=== PATIENT | female | born 1960 | race Two or more races ===

== ENCOUNTER 2020-07-23 22:09 | Inpatient (IN) | payer OTHER ==
[~2020-07-23] VITALS: Ht 157.5 cm; Wt 82.9 kg
[~2020-07-23 22:09] MED LIST: ACET500T15 PO; AMBERIN PO
[2020-07-23] MEDS ORDERED: MORPHINE 4 MG/ML 1ML VIAL/SYRINGE (J2270) IV ONE (22:30)
[2020-07-23] MEDS ORDERED: NS 1,000 ML IV ONE (22:30)
[2020-07-23] MEDS ORDERED: ONDANSETRON 4MG/2ML VIAL IV ONE (22:30)
[2020-07-23] MEDS ORDERED: ACETAMINOPHEN TAB 650MG DOSE (2X325MG) PO ONE (22:45)
--- NOTE | 2020-07-23 22:45 | REPVR ---
PROCEDURE INFORMATION: Exam: XR Chest, 1 View Exam date and time: 07/23/2020 10:14 PM Age: 59 years old Clinical indication: Other: SOB, covid positive; Additional info: SOB, covid+ TECHNIQUE: Imaging protocol: XR of the chest Views: 1 view. COMPARISON: CR PORTABLE CHEST X-RAY 05/28/2017 4:14 PM FINDINGS: Lungs: There is decreased inflation of the lungs. Perihilar haziness which may be related to low inflation, however, there is greater localized haziness or infiltrate in the right upper lobe suggesting pneumonia. Minimal left base atelectasis or scar. Pleural space: Unremarkable. No pleural effusion. No pneumothorax. Heart/Mediastinum: Unremarkable. No cardiomegaly. Bones/joints: Unremarkable. Soft tissues: There are moderately generous overlying soft tissues. IMPRESSION: Poor inspiratory chest with perihilar haziness which may be reflection of vascular crowding and low inflation, however, there is localized density in the right upper lobe consistent with infiltrate and pneumonia. Additional perihilar infiltrates are not excluded. Electronically signed by: Dino Paz On 07/23/2020 22:45:11 PM
[2020-07-23 23:09] LABS: BASO % 0.1 % (0.0-1.0); HEMATOCRIT 39.6 % (36.0-47.0); HEMOGLOBIN 12.8 g/dl (12.0-15.5); LYMPH # 0.5 10^3/uL (1.5-5.0); LYMPH % 7.8 % (24.0-44.0); MEAN CORPUSCULAR HEMOGLOBIN 29.2 pg (27.0-33.0); MEAN CORPUSCULAR HGB CONC 32.3 g/dl (32.0-36.5); MEAN CORPUSCULAR VOLUME 90.4 fl (80.0-96.0); MONO # 0.3 10^3/uL (0.0-0.8); MONO % 3.6 % (0.0-5.0); NEUTROPHILS # 6.1 10^3/uL (1.5-8.5); NEUTROPHILS % 87.9 % (36.0-66.0); PLATELET COUNT, AUTOMATED 310 10^3/uL (150-450); RED BLOOD COUNT 4.38 10^6/uL (4.00-5.40); WHITE BLOOD COUNT 6.9 10^3/uL (4.0-10.0)
[2020-07-23 23:23] LABS: D-DIMER QUANT 1019.36 ng/ml (<500)
[2020-07-23 23:42] LABS: ALBUMIN 2.8 GM/DL (3.2-5.2); ALT/SGPT 57 U/L (12-78); BILIRUBIN,TOTAL 0.3 MG/DL (0.2-1.0); BLOOD UREA NITROGEN 18 MG/DL (7-18); CALCIUM LEVEL 8.2 MG/DL (8.5-10.1); CARBON DIOXIDE LEVEL 25 MEQ/L (21-32); CHLORIDE LEVEL 105 MEQ/L (98-107); CK-MB VALUE MASS < 1.0 NG/ML (<3.6); CPK CREATINE PHOSPHOKINASE 60 U/L (26-192); CREATININE FOR GFR 0.73 MG/DL (0.55-1.30); FERRITIN 1146 NG/ML (8-252); GLOMERULAR FILTRATION RATE > 60.0 (>51); GLUCOSE, FASTING 122 MG/DL (70-100); LDH LACTATE DEHYDROGENASE 356 U/L (84-246); LIPASE 168 U/L (73-393); MAGNESIUM LEVEL 2.2 MG/DL (1.8-2.4); MB/CK RELATIVE INDEX 1.67 (< OR =4); POTASSIUM SERUM 3.4 MEQ/L (3.5-5.1); SODIUM LEVEL 139 MEQ/L (136-145); TOTAL PROTEIN 6.9 GM/DL (6.4-8.2); TROPONIN I < 0.02 NG/ML (< 0.10)
[2020-07-23] MEDS ORDERED: dexameTHASONE 20MG/5ML VIAL (J1100 PER 1MG) IV ONE (23:45)
[2020-07-23] MEDS ORDERED: ISOVUE-370 76% 100ML VIAL As Ordered ONE (23:47)
--- NOTE | 2020-07-24 00:24 | REPVR ---
PROCEDURE INFORMATION: Exam: CT Angiography Chest With Contrast Exam date and time: 07/23/2020 11:29 PM Age: 59 years old Clinical indication: Shortness of breath; Additional info: Hypoxia, SOB, eval for pe TECHNIQUE: Imaging protocol: Computed tomographic angiography of the chest with intravenous contrast. 3D rendering (Not supervised by radiologist): MIP and/or 3D reconstructed images were created by the technologist. Radiation optimization: All CT scans at this facility use at least one of these dose optimization techniques: automated exposure control; mA and/or kV adjustment per patient size (includes targeted exams where dose is matched to clinical indication); or iterative reconstruction. Contrast material: ISO; Contrast volume: 100 ml; Contrast route: INTRAVENOUS (IV); COMPARISON: CT ANGIO CHEST 05/28/2017 6:10 PM FINDINGS: Pulmonary arteries: The main pulmonary artery measures 19 mm. No pulmonary embolism is identified. Aorta: The ascending thoracic aorta measures 28 mm. Lungs: Bilateral ground-glass pulmonary infiltrates with associated areas of atelectasis and early consolidation which are greatest in the upper lobes consistent with pneumonia. Pleural space: Unremarkable. No pneumothorax. No pleural effusion. Heart: The left atrium measures 4.4 cm in its AP dimension. Mediastinal space: Minimal hiatal hernia. Lymph nodes: Unremarkable. No enlarged lymph nodes. Liver: The liver attenuation is 27 Hounsfield units and the spleen is 64 Hounsfield units. Gallbladder and bile ducts: Status post cholecystectomy. Bones/joints: Unremarkable. No acute fracture. Soft tissues: Unremarkable. IMPRESSION: 1. New bilateral ground-glass pulmonary infiltrates with areas of atelectasis and early consolidation consistent with pneumonia which is greatest in the upper lobes. 2. Probable fatty infiltration of the liver. 3. Otherwise negative CTA chest. No interval pulmonary embolism is seen since 05/28/2017. Electronically signed by: Dino Paz On 07/24/2020 00:24:22 AM
[2020-07-24 00:27] LABS: INR 1.12; PROTHROMBIN TIME 14.6 SECONDS (12.5-14.3)
[2020-07-24 00:28] LABS: PARTIAL THROMBOPLASTIN TIME 32.7 SECONDS (24.2-38.5)
--- NOTE | 2020-07-24 00:29 | REPVR ---
PROCEDURE INFORMATION: Exam: CT Abdomen And Pelvis With Contrast Exam date and time: 07/23/2020 10:36 PM Age: 59 years old Clinical indication: Nausea; Abdominal pain; Generalized; Additional info: Covid+, abdominal pain, n/v/d TECHNIQUE: Imaging protocol: Computed tomography of the abdomen and pelvis with intravenous contrast. Radiation optimization: All CT scans at this facility use at least one of these dose optimization techniques: automated exposure control; mA and/or kV adjustment per patient size (includes targeted exams where dose is matched to clinical indication); or iterative reconstruction. Contrast material: ISO; Contrast volume: 100 ml; Contrast route: INTRAVENOUS (IV); COMPARISON: No relevant prior studies available. FINDINGS: Lungs: Mild bibasilar ground-glass infiltrates with associated atelectasis. Mediastinal space: Minimal hiatal hernia. Liver: The liver attenuation is 51 Hounsfield units and the spleen is 145 Hounsfield units. The liver at mid clavicular line measures 12.9 cm cm. Gallbladder and bile ducts: Status post cholecystectomy. Mild biliary dilation which is attributed to prior cholecystectomy and is likely physiologic. The CBD measures 10 mm with tapering to the ampulla. Pancreas: Mild distention of the main pancreatic duct measuring up to 6 mm with tapering to the ampulla. Spleen: Normal. No splenomegaly. Adrenal glands: Normal. No mass. Kidneys and ureters: Normal. No hydronephrosis. Stomach and bowel: Fluid throughout much of the colon with air-fluid levels to the rectum consistent with diarrhea. Appendix: There are no changes of appendicitis. A normal appendix is not seen. Intraperitoneal space: Unremarkable. No free air. No significant fluid collection. Vasculature: Unremarkable. No abdominal aortic aneurysm. Lymph nodes: Unremarkable. No enlarged lymph nodes. Urinary bladder: Unremarkable as visualized. Reproductive: Unremarkable as visualized. Bones/joints: Bilateral spondylolysis of L5 with grade 2 anterolisthesis. Soft tissues: Unremarkable. IMPRESSION: 1. Fluid throughout the colon to the rectum consistent with diarrhea. 2. Mild bibasilar ground-glass infiltrates with associated atelectasis consistent with pneumonia. 3. Fatty infiltration of the liver. 4. Mild distention of the main pancreatic duct which tapers to the ampulla. 5. Otherwise negative CT abdomen/pelvis. No bowel obstruction. Electronically signed by: Dino Paz On 07/24/2020 00:29:44 AM
[2020-07-24 00:31] LABS: NT-PRO BNP 306 PG/ML (<125)
[2020-07-24 00:42] LABS: ERYTHROCYTE SEDIMENTATION RATE 64 mm/hr (0-30)
[2020-07-24] MEDS ORDERED: POTASSIUM CHLORIDE 10 MEQ SR TABLET PO ONE (02:30)
--- NOTE | 2020-07-24 03:06 | HPEPDOC ---
[facility] Medical History & Physical Date of Admission Jul 24, 2020 Date of Service: Jul 24, 2020 Attending Physician: JENNIFER PADILLA MD History and Physical CHIEF COMPLAINT: Nausea, vomiting, abdominal pain, and shortness of breath HISTORY OF PRESENT ILLNESS: is a 59yo female with no notable PMHx other than a prolapsed mitral valve who presented to the [facility] ED on the evening of 07/23/2020 at the urging of her because she had been acting "delirious," and had not eaten much in a few days due to vomiting. Patient reports her recent history dates back to Sunday, 07/12 when she began to feel full body aches. As these aches progressed, her son urged her to present for COVID-19 testing on 07/17 - - for which she tested positive. She reports being prescribed 4 days of an antibiotic she cannot recall the name of (only took for 2 days due to onset of emesis), as well as an inhaler, by urgent care. She remained at home under quarantine and a few days later, began to experience significant nausea and vomiting, with nonbloody emesis 34 times per day for 4 days, leading in to 07/22. On the day of presentation, 07/23, patient reported coffee ground-appearing emesis. As it relates to the aforementioned. Altered mental status, she describes is a difficulty concentrating. She also had accompanying fevers for the last 5 days (100-101 degrees temporally) and sharp continuous pain under her right rib cage that would improve slightly after vomiting. Upon presentation to the ED, her temperature was measured at 101.1, and she was saturating at only 84% on room air. She was placed on nasal cannula oxygen supplementation and given a one-time dose of 10 mg IV, dexamethasone, 4 mg IV morphine, and a 1 L normal saline bolus. She did not have leukocytosis, but did have significant elevations in ferritin, LDH, d-dimer, BNP, CRP, and ESR. She also had some mild hypokalemia. Lactic acid was measured 1.5. Per discussion with ED nursing, patient didn't respond much the morphine, but did feel significantly better after getting the dexamethasone. CT chest with contrast showed new bilateral groundglass infiltrates with some early atelectasis and consolidation consistent with pneumonia, greatest in the upper lobes. CT abdomen and pelvis with contrast showed fluid in the rectum co nsistent with diarrhea as well as fatty liver and mild distention of the main pancreatic duct. At the time of admitting evaluation, she reported the pain under her right rib cage had resolved, she was only mildly short of breath. She was denying any cough or productive sputum, and had only a little increased work of breathing. In addition, she no longer felt nauseous and had not had an episode of emesis since presentation. PAST MEDICAL HISTORY: Prolapsed mitral valve PAST SURGICAL HISTORY: Cholecystectomy Tubal ligation SOCIAL HISTORY: Lives with her in [place], [place]. Has 2 children, boy and a girl, who are both grown. 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 She averages roughly 2-3 beers or rum and Coke drinks per week She denies any current or former use of tobacco products or illicit drugs. FAMILY HISTORY: Mother: , unspecified heart condition requiring implantation of pacemaker/defibrillator, unprovoked pulmonary embolism, CVA in 2017 Father: Stage IV kidney cancer status post nephrectomy with metastases to vertebrae ALLERGIES: Please see below. REVIEW OF SYSTEMS: CONSTITUTIONAL: Reports fevers, chills as stated in HPI. Denies recent unintentional change in weight EYES: Denies double vision or blurry vision, eye pain ENT: Denies runny nose, ear pain, dysphagia, or odynophagia CARDIOVASCULAR: Denies chest pain, pressure, or palpitations RESPIRATORY: Reports mild increase in work of breathing as well, shortness of breath but denies cough or productive sputum GASTROINTESTINAL: Reports right upper quadrant abdominal pain that has improved since presentation. Denies any nausea or vomiting at this time, but recent extensive history as detailed in HPI. Also reports coffee ground emesis on day presentation, as well as diarrhea. Denies any blood in the stool. GENITOURINARY: Denies hematuria or dysuria NEUROLOGY: Denies any changes to sight/smell/hearing/taste, seizures, faint, headaches, paresthesias, numbness of extremities HEMATOLOGIC: Denies any easy bleeding or bruising LYMPHATIC: Denies any new lumps or bumps anywhere HOME MEDICATIONS: Please see below. PHYSICAL EXAMINATION: VITAL SIGNS: Temperature max 101.1, pulse 81, respiratory rate, 20, blood pressure 138/67, pulse oximetry, 96 % on 3L NC. GENERAL: Pleasant female lying in bed. Wearing nasal cannula supplemental action. Alert and oriented 3. HEENT: Noninjected, anicteric sclera. PERRLA. Dry mucous membranes. No p haryngeal erythema or exudate. RESPIRATORY: Moderately diminished tidal volume and breath sounds bilaterally with symmetric chest expansion. No other adventitious breath sounds appreciated. Breathing with 3 L nasal cannula. CARDIOVASCULAR: Regular rate, regular rhythm. Normal S1, S2. ABDOMEN: Soft obese. Nondistended. Mild tenderness of right upper quadrant. No rigidity. Hypoactive bowel sounds present. Very tanned skin over abdomen. EXTREMITIES: Bilateral lower extremities free of edema with no signs of clubbing or cyanosis. 2+ radial and dorsalis pedis pulses bilaterally. NEUROLOGICAL: Awake, alert and oriented 3, no focal neurologic deficits appreciable. Non-dysarthric speech. PSYCHIATRIC: Mood and affect appear appropriate. LABORATORY DATA: Please see below. IMAGING: Chest Xray, 07/23/20 IMPRESSION: Poor inspiratory chest with perihilar haziness which may be reflection of vascular crowding and low inflation, however, there is localized density in the right upper lobe consistent with infiltrate and pneumonia. Additional perihilar infiltrates are not excluded. CT abdomen/pelvis, 07/23/20 IMPRESSION: 1. Fluid throughout the colon to the rectum consistent with diarrhea. 2. Mild bibasilar ground-glass infiltrates with associated atelectasis consistent with pneumonia. 3. Fatty infiltration of the liver. 4. Mild distention of the main pancreatic duct which tapers to the ampulla. 5. Otherwise negative CT abdomen/pelvis. No bowel obstruction. CTA, 07/23/20 IMPRESSION: 1. New bilateral ground-glass pulmonary infiltrates with areas of atelectasis and early consolidation consistent with pneumonia which is greatest in the upper lobes. 2. Probable fatty infiltration of the liver. 3. Otherwise negative CTA chest. No interval pulmonary embolism is seen since 05/28/2017. MICROBIOLOGY: Please see below. ASSESSMENT & PLAN: This is a 59yo female w/ no notable hx other than mitral valve prolapse who presented to the ED on the evening as a known positive COVID-19 with 5 days of nausea, vomiting, fevers and right upper quadrant abdominal pain. Upon present ation, she had a temperature of 101.1 and was satting at 84% on room air. She responded well to IV dexamethasone in the ED and had multiple inflammatory markers elevated. She was subsequently admitted primarily for treatment of Covid 19 pneumonia. #Acute hypoxic respiratory failure COVID-19 pneumonia/pneumonitis -Presented febrile with 84% saturation on room air; she responded well to O2 supplementation in the ED; of's note, patient does not have a history of any obstructive, restrictive, or reactive airway disease -D-dimer (1019), LDH (356), ferritin (1146), CRP (20), ESR (64) significantly elevated -Due to presenting marked hypoxia on RA, as well as response in ED to 1x dose, qd IV dexamethasone ordered -Due to multiple elevated inflammatory markers, specifically CRP, aligning in current research for worse prognosis, ministration of remdesivir was initiated -sc lovenox ordered -Oxygen titration orders placed with goal of greater than 92% -incentive spirometry, VBG, Tessalon Perles all ordered -Covid 19 order set completed for follow-up 12 hour labs, with daily labs #Dehydration secondary to poor oral intake from multiple days of vomiting and diarrhea -Patient had dry mucous membranes on exam with recent poor oral intake. Therefore, despite mildly elevated BNP that could be secondary to hypoxia and multiple other inflammatory elements, 1 L of normal saline ordered -Initial lactic 1.5 #Abdominal pain -Mild dilation of the pancreatic duct and fatty liver seen on imaging -Patient has had roughly 5 days of emesis, last day which she endorsed coffee- ground emesis -Responded well to IV steroids, which will be continued in the setting of her hypoxic respiratory failure/Covid pneumonia -IV Zofran, po protonix #Fatty liver -Identified on CT abdomen and pelvis -Patient is not have history of diabetes or impaired fasting glucose, -Triglycerides level ordered #Reported coffee-ground emesis -Patient reported that today, the fifth day of vomiting, she began to have coffee ground -Hemoglobin 12.8 on presentation -po protonix ordered #Mild hypokalemia -sK 3.4 upon presentation; supplemented orally #DVT prophylaxis: sc lovenox Disposition: Pending continued improvement in oxygenation inflammatory markers in the setting of positive COVID Vital Signs Vital Signs Date Time Temp Pulse Resp B/P (MAP) Pulse Ox O2 Delivery O2 Flow Rate FiO2 07/24/20 00:30 138/67 (90) 07/24/20 00:24 81 96 07/24/20 00:11 99.4 20 Nasal Cannula 3.0 Laboratory Data Labs 24H Laboratory Tests 2 07/23/20 22:55: Immature Granulocyte % (Auto) 0.6, Neutrophils (%) (Auto) 87.9H, Lymphocytes (%) (Auto) 7.8L, Monocytes (%) (Auto) 3.6, Eosinophils (%) (Auto) 0.0, Basophils (%) (Auto) 0.1, Neutrophils # (Auto) 6.1, Lymphocytes # (Auto) 0.5L, Monocytes # (Auto) 0.3, Eosinophils # (Auto) 0.0, Basophils # (Auto) 0.0, Nucleated Red Blood Cells % (auto) 0.0, Erythrocyte Sedimentation Rate 64H, Prothrombin Time 14.6H, Prothromb Time International Ratio 1.12, Activated Partial Thromboplast Time 32.7, Fibrinogen 572H, D-Dimer, Quantitative 1019.36H, Anion Gap 9, Glomerular Filtration Rate > 60.0, Lactic Acid Level 1.5, Calcium Level 8.2L, Magnesium Level 2.2, Ferritin 1146H, Total Bilirubin 0.3, Aspartate Amino Transf (AST/SGOT) 29, Alanine Aminotransferase (ALT/SGPT) 57, Alkaline Phosphatase 116, Lactate Dehydrogenase 356H, Total Creatine Kinase 60, Creatine Kinase MB < 1.0, Creatine Kinase MB Relative Index 1.67, Troponin I < 0.02, C-Reactive Protein, Quantitative 20.30H, JN-Wis-H-Type Natriuretic Peptide 306H, Total Protein 6.9, Albumin 2.8L, Albumin/Globulin Ratio 0.7L, Lipase 168 CBC/BMP Laboratory Tests 07/23/20 22:55 Microbiology Microbiology 07/23/20 Blood Culture, Received Pending 07/23/20 Blood Culture, Received Pending Home Medications No Active Prescriptions or Reported Meds Allergies Coded Allergies: No Known Allergies (Unverified , 05/28/17) A-FIB/CHADSVASC A-FIB History Current/History of A-Fib/PAF?: No Current PO Anticoag Therapy: No GME ATTESTATION GME ATTESTATION My faculty preceptor for this patient encounter was physically present during the encounter and was fully available. All aspects of the patient interview, examination, medical decision making process, and medical care plan development were reviewed and approved by the faculty preceptor. The faculty preceptor is aware and concurs with the plan as stated in the body of this note and will attest to such by his/her cosignature. ATTENDING NOTE TIME OF SERVICE 1213AM is a 59 yr old w hx of MVP, Pulm HTN (PASP 34) who was diagnosed with COVID 19 on Jul 17 and presented w c/o gradually worsening n/v/d and dyspnea; she will be admitted for management of sepsis 2/2 COVID 19 PNA. #Sepsis # COVID 19 # RUL Pneumonia # Newly diagnosed fatty liver # Mild Hypokalemia # Class 1 obestiy Rest per H&P RYAN KURTZ D.O. Jul 24, 2020 03:06 JENNIFER PADILLA MD Jul 24, 2020 05:13
[2020-07-24] MEDS ORDERED: MAALOX 30 ML SUSP *UDC PO PRN (03:15)
[2020-07-24] MEDS ORDERED: MOM 30ML SUSPENSION UDC PO PRN (03:15)
[2020-07-24] MEDS ORDERED: ENOXAPARIN 100MG/1ML SYRINGE (J1650 PER 10MG) SC SCH (03:15)
[2020-07-24] MEDS ORDERED: NS 1,000 ML IV SCH (03:30)
[2020-07-24] MEDS ORDERED: SODIUM CHLORIDE 0.9% 1000ML IV ONE (03:30)
[2020-07-24 03:36] LABS: TRIGLYCERIDES LEVEL 79 MG/DL (<150)
[2020-07-24] MEDS ORDERED: DEXTROSE 50% 50 ML SYRINGE IV PRN (03:45)
[2020-07-24] MEDS ORDERED: GLUCOSE 4GM CHEW TABLET PO PRN (03:45)
[2020-07-24] MEDS ORDERED: GLUCAGON INJ 1MG VIAL SC PRN (03:45)
[2020-07-24 04:18] LABS: VENOUS BASE EXCESS -0.5 (-2.0-2.0); VENOUS HCO3 24.6 MEQ/L (23.0-27.0); VENOUS O2 SATURATION 88.8 % (60.0-80.0); VENOUS PARTIAL PRESSURE CO2 42.1 mmHg (38.0-50.0); VENOUS PH 7.384 UNITS (7.330-7.430); VENOUS STANDARD HCO3 23.8 MEQ/L; VENOUS TOTAL CO2 25.9 MEQ/L (24.0-28.0)
[2020-07-24] MEDS: dexameTHASONE 4 MG/ML 1ML VIAL (J1100 PER 1MG) IV SCH (08:32)
[2020-07-24] MEDS: ENOXAPARIN 40MG/0.4ML SYRINGE (J1650 PER 10MG) SC SCH (08:32)
[2020-07-24] MEDS: PANTOPRAZOLE 20 MG TAB PO SCH (09:00)
[2020-07-24] MEDS ORDERED: SODIUM CHLORIDE 0.9% INJ 10 ML SYR IV ONE (09:00)
[2020-07-24] MEDS ORDERED: ALBUTEROL 90 MCG/ACT 8GM HFA INHALER INH PRN (11:00)
[2020-07-24] MEDS: COMBIVENT RESPIMAT 100-20MCG INHALER 4GM INH SCH ×2 (11:00→20:00)
[2020-07-24 11:47] LABS: BASO % 0.2 % (0.0-1.0); HEMATOCRIT 35.8 % (36.0-47.0); HEMOGLOBIN 11.2 g/dl (12.0-15.5); LYMPH # 0.4 10^3/uL (1.5-5.0); LYMPH % 7.7 % (24.0-44.0); MEAN CORPUSCULAR HEMOGLOBIN 28.9 pg (27.0-33.0); MEAN CORPUSCULAR HGB CONC 31.3 g/dl (32.0-36.5); MEAN CORPUSCULAR VOLUME 92.5 fl (80.0-96.0); MONO # 0.2 10^3/uL (0.0-0.8); MONO % 3.4 % (0.0-5.0); NEUTROPHILS # 4.7 10^3/uL (1.5-8.5); NEUTROPHILS % 88.1 % (36.0-66.0); PLATELET COUNT, AUTOMATED 265 10^3/uL (150-450); RED BLOOD COUNT 3.87 10^6/uL (4.00-5.40); WHITE BLOOD COUNT 5.4 10^3/uL (4.0-10.0)
[2020-07-24 12:01] LABS: INR 1.17; PROTHROMBIN TIME 15.2 SECONDS (12.5-14.3)
[2020-07-24 12:05] LABS: D-DIMER QUANT 881.3 ng/ml (<500)
[2020-07-24 12:21] LABS: FERRITIN 1381 NG/ML (8-252); LDH LACTATE DEHYDROGENASE 371 U/L (84-246); NT-PRO BNP 480 PG/ML (<125); TRIGLYCERIDES LEVEL 80 MG/DL (<150); TROPONIN I < 0.02 NG/ML (< 0.10)
[2020-07-24 12:25] VITALS: BP 116/65
[2020-07-24] MEDS ORDERED: FLUBLOK(EGG FREE)(QUAD)INFLUENZA VACC 0.5ML SYRINGE 18YRS & OLDER IM PRN (14:15)
--- NOTE | 2020-07-24 14:52 | IPNPDOC ---
Text Note Date of Service The patient was seen on 07/24/20. NOTE SUBJECTIVE: -SOB, now on 6L NC. No chest pain, palpitations, N/V/D PHYSICAL EXAMINATION: VITAL SIGNS: see below GENERAL: NAD, on 6L NC, AOx3 HEENT: Noninjected, anicteric sclera. Dry mucous membranes. RESPIRATORY: Diminished breath sounds bilaterally with symmetric chest e xpansion. No other adventitious breath sounds appreciated. On 6 L nasal cannula. CARDIOVASCULAR: Regular rate, regular rhythm. Normal S1, S2. ABDOMEN: Soft obese. Nondistended. Mild tenderness of right upper quadrant. No rigidity. Hypoactive bowel sounds present. Very tanned skin over abdomen. EXTREMITIES: Bilateral lower extremities without edema with no signs of clubbing or cyanosis. 2+ radial and dorsalis pedis pulses bilaterally. NEUROLOGICAL: Awake, alert and oriented 3, no focal neurologic deficits appreciable. Non-dysarthric speech. PSYCHIATRIC: Mood and affect appear appropriate. LABORATORY DATA: Reviewed IMAGING: Chest Xray, 07/23/20 IMPRESSION: Poor inspiratory chest with perihilar haziness which may be reflection of vascular crowding and low inflation, however, there is localized density in the right upper lobe consistent with infiltrate and pneumonia. Additional perihilar infiltrates are not excluded. CT abdomen/pelvis, 07/23/20 IMPRESSION: 1. Fluid throughout the colon to the rectum consistent with diarrhea. 2. Mild bibasilar ground-glass infiltrates with associated atelectasis consistent with pneumonia. 3. Fatty infiltration of the liver. 4. Mild distention of the main pancreatic duct which tapers to the ampulla. 5. Otherwise negative CT abdomen/pelvis. No bowel obstruction. CTA, 07/23/20 IMPRESSION: 1. New bilateral ground-glass pulmonary infiltrates with areas of atelectasis and early consolidation consistent with pneumonia which is greatest in the upper lobes. 2. Probable fatty infiltration of the liver. 3. Otherwise negative CTA chest. No interval pulmonary embolism is seen since 05/28/2017. MICROBIOLOGY: Please see below. ASSESSMENT & PLAN: 59yo W with a hx of mitral valve prolapse and obesity who presented to the ED with a known recent positive COVID-19 diagnosis with 5 days of nausea, vomiting, fevers and right upper quadrant abdominal pain and admitted for Covid 19 pneumonia. #Acute hypoxic respiratory failure COVID-19 pneumonia/pneumonitis -Presented febrile with 84% saturation on room air; she responded well to O2 supplementation in the ED; of's note, patient does not have a history of any obstructive, restrictive, or reactive airway disease -D-dimer (1019), LDH (356), ferritin (1146), CRP (20), ESR (64) significantly elevated at presentation -Due to presenting marked hypoxia on RA, as well as response in ED to 1x dose, qd IV dexamethasone ordered -Due to multiple elevated inflammatory markers, specifically CRP, aligning in current research for worse prognosis, ministration of remdesivir was initiated -sc lovenox ordered -Oxygen titration orders placed with goal of greater than 92% -incentive spirometry, VBG, Tessalon Perles all ordered -Covid 19 order set completed for follow-up 12 hour labs, with daily labs -will add mdi's for SOB and coughing #Dehydration secondary to poor oral intake from multiple days of vomiting and diarrhea -s/p some fluids in the ED -Initial lactic 1.5 #Abdominal pain -Mild dilation of the pancreatic duct and fatty liver seen on imaging -Patient has had roughly 5 days of emesis, last day which she endorsed coffee- ground emesis -Responded well to IV steroids, which will be continued in the setting of her hypoxic respiratory failure/Covid pneumonia -IV Zofran, po protonix #Fatty liver -Identified on CT abdomen and pelvis -Patient is not have history of diabetes or impaired fasting glucose -Triglycerides level ordered -obesity, will defer PCP to refer to nutrition #Reported coffee-ground emesis -Patient reported that today, the fifth day of vomiting, she began to have coffee ground -Hemoglobin 12.8 on presentation -po protonix ordered -monitor CBC daily #Mild hypokalemia -K 3.4 at presentation; supplemented orally -monitor daily BMP #DVT prophylaxis: sc lovenox Disposition: Pending continued improvement in oxygenation inflammatory markers in the setting of positive COVID VS,Fishbone, I+O VS, Fishbone, I+O Laboratory Tests 07/23/20 22:55 Vital Signs Date Time Temp Pulse Resp B/P (MAP) Pulse Ox O2 Delivery O2 Flow Rate FiO2 07/24/20 09:15 69 97 Nasal Cannula 07/24/20 09:01 140/62 (88) 07/24/20 03:45 96.4 22 3.0 MACARENA RAMON MD Jul 24, 2020 11:09
[2020-07-24 16:00] VITALS: BP 119/67
[2020-07-24] MEDS: guaiFENesin ER 600 MG TAB PO SCH ×2 (16:02→20:22)
--- NOTE | 2020-07-24 18:16 | ECGEPIP ---
[facility] - ED Test Date: 2020-07-23 Pat Name: ALEJANDRO BHAKTA Department: Room: [place] [address] Gender: Female Director It: gi : 1960 Requested By: EDMAR SUAREZ Order Number: [id number] Reading MD: Michelle Valderrama Measurements Intervals [place] Rate: 92 P: 42 MI: 137 QRS: 53 QRSD: 98 T: -9 QT: 354 QTc: 440 Interpretive Statements SINUS RHYTHM LOW QRS VOLTAGE IN EXTREMITY LEADS NONSPECIFIC T-WAVE ABNORMALITY INCREASED RATE 05/29/17 Electronically Signed on 07-24-2020 18:16:46 EST by Michelle Valderrama
[2020-07-24 19:00] VITALS: O2SAT 95
[2020-07-24 20:00] VITALS: BP 116/58; O2SAT 94
[2020-07-24] MEDS ORDERED: ONDANSETRON 4MG/2ML VIAL IV ONE (20:15)
[2020-07-24] MEDS ORDERED: ONDANSETRON 4MG/2ML VIAL As Ordered ONE (20:22)
[2020-07-24] MEDS: ACETAMINOPHEN TAB 650MG DOSE (2X325MG) PO PRN (20:22)
[2020-07-25] VITALS (10 sets, daily range): BP systolic 100–114; BP diastolic 55–64
[2020-07-25 05:33] LABS: HEMATOCRIT 35.3 % (36.0-47.0); HEMOGLOBIN 11.5 g/dl (12.0-15.5); LYMPH # 0.7 10^3/uL (1.5-5.0); LYMPH % 10.6 % (24.0-44.0); MEAN CORPUSCULAR HEMOGLOBIN 30.3 pg (27.0-33.0); MEAN CORPUSCULAR HGB CONC 32.6 g/dl (32.0-36.5); MEAN CORPUSCULAR VOLUME 92.9 fl (80.0-96.0); MONO # 0.3 10^3/uL (0.0-0.8); MONO % 4.6 % (0.0-5.0); NEUTROPHILS # 5.5 10^3/uL (1.5-8.5); NEUTROPHILS % 84.5 % (36.0-66.0); PLATELET COUNT, AUTOMATED 278 10^3/uL (150-450); WHITE BLOOD COUNT 6.5 10^3/uL (4.0-10.0)
[2020-07-25 05:46] LABS: INR 1.14; PARTIAL THROMBOPLASTIN TIME 29.6 SECONDS (24.2-38.5); PROTHROMBIN TIME 14.9 SECONDS (12.5-14.3)
[2020-07-25 05:59] LABS: D-DIMER QUANT 702.04 ng/ml (<500)
[2020-07-25 06:00] LABS: ALBUMIN 2.3 GM/DL (3.2-5.2); ALT/SGPT 71 U/L (12-78); BILIRUBIN,DIRECT 0.1 MG/DL (0.0-0.2); BILIRUBIN,TOTAL 0.3 MG/DL (0.2-1.0); BLOOD UREA NITROGEN 20 MG/DL (7-18); CALCIUM LEVEL 7.8 MG/DL (8.5-10.1); CARBON DIOXIDE LEVEL 25 MEQ/L (21-32); CHLORIDE LEVEL 108 MEQ/L (98-107); CREATININE FOR GFR 0.64 MG/DL (0.55-1.30); FERRITIN 1229 NG/ML (8-252); GLOMERULAR FILTRATION RATE > 60.0 (>51); GLUCOSE, FASTING 97 MG/DL (70-100); MAGNESIUM LEVEL 2.1 MG/DL (1.8-2.4); NT-PRO BNP 865 PG/ML (<125); POTASSIUM SERUM 4.1 MEQ/L (3.5-5.1); SODIUM LEVEL 140 MEQ/L (136-145); TOTAL PROTEIN 5.9 GM/DL (6.4-8.2)
[2020-07-25] MEDS: ACETAMINOPHEN TAB 650MG DOSE (2X325MG) PO PRN (07:05)
[2020-07-25] MEDS: COMBIVENT RESPIMAT 100-20MCG INHALER 4GM INH SCH ×2 (07:12→19:59)
[2020-07-25] MEDS: ENOXAPARIN 40MG/0.4ML SYRINGE (J1650 PER 10MG) SC SCH (08:13)
[2020-07-25] MEDS: PANTOPRAZOLE 20 MG TAB PO SCH (08:13)
[2020-07-25] MEDS: guaiFENesin ER 600 MG TAB PO SCH ×2 (08:13→20:33)
[2020-07-25] MEDS: dexameTHASONE 4 MG/ML 1ML VIAL (J1100 PER 1MG) IV SCH (08:13)
[2020-07-25] MEDS: SODIUM CHLORIDE 0.9% INJ 10 ML SYR IV SCH (08:14)
[2020-07-25 11:39] LABS: ABG BASE EXCESS -1.5 (-2.0-2.0); ABG HCO3 21.1 MEQ/L (22.0-26.0); ABG O2 SATURATION 91.9 % (95.0-99.0); ABG PARTIAL PRESSURE CO2 29.7 mmHg (35.0-45.0); ABG PARTIAL PRESSURE O2 57.4 mmHg (75.0-100.0); ABG STANDARD HCO3 23.1 MEQ/L (22.0-26.0)
[2020-07-25] MEDS ORDERED: ONDANSETRON 4MG/2ML VIAL IV PRN (15:15)
--- NOTE | 2020-07-25 16:03 | IPNPDOC ---
Text Note Date of Service The patient was seen on 07/25/20. NOTE SUBJECTIVE: -Hypoxemia worsened on nasal canula --> overnight was placed on vapotherm --> somnolent on 80% FiO2 --> ABG PHYSICAL EXAMINATION: VITAL SIGNS: see below GENERAL: lethargic, AOx3 HEENT: Noninjected, anicteric sclera. Dry mucous membranes. RESPIRATORY: Diminished breath sounds bilaterally, on vapotherm CARDIOVASCULAR: Regular rate, regular rhythm. Normal S1, S2. ABDOMEN: Soft obese. Nondistended. Mild tenderness of right upper quadrant. No rigidity. Hypoactive bowel sounds present. Very tanned skin over abdomen. EXTREMITIES: Bilateral lower extremities without edema with no signs of clubbing or cyanosis. 2+ radial and dorsalis pedis pulses bilaterally. NEUROLOGICAL: Awake, alert and oriented 3, no focal neurologic deficits appreciable. Non-dysarthric speech. PSYCHIATRIC: Mood and affect appear appropriate. LABORATORY DATA: Reviewed Ferritin downtrending 1229 proBNP uptrending 865 procal downtrending 0.36 IMAGING: Chest Xray, 07/23/20 IMPRESSION: Poor inspiratory chest with perihilar haziness which may be reflection of vascular crowding and low inflation, however, there is localized density in the right upper lobe consistent with infiltrate and pneumonia. Additional perihilar infiltrates are not excluded. CT abdomen/pelvis, 07/23/20 IMPRESSION: 1. Fluid throughout the colon to the rectum consistent with diarrhea. 2. Mild bibasilar ground-glass infiltrates with associated atelectasis consistent with pneumonia. 3. Fatty infiltration of the liver. 4. Mild distention of the main pancreatic duct which tapers to the ampulla. 5. Otherwise negative CT abdomen/pelvis. No bowel obstruction. CTA, 07/23/20 IMPRESSION: 1. New bilateral ground-glass pulmonary infiltrates with areas of atelectasis and early consolidation consistent with pneumonia which is greatest in the upper lobes. 2. Probable fatty infiltration of the liver. 3. Otherwise negative CTA chest. No interval pulmonary embolism is seen since 05/28/2017. MICROBIOLOGY: Please see below. ASSESSMENT & PLAN: 59yo W with a hx of mitral valve prolapse and obesity who presented to the ED with a known recent positive COVID-19 diagnosis with 5 days of nausea, vomiting, fevers and right upper quadrant abdominal pain and admitted for Covid 19 pneumonia. #Acute hypoxic respiratory failure COVID-19 pneumonia/pneumonitis -Presented febrile with 84% saturation on room air; she responded well to O2 supplementation in the ED; of's note, patient does not have a history of any obstructive, restrictive, or reactive airway disease -D-dimer (1019), LDH (356), ferritin (1146), CRP (20), ESR (64) significantly elevated at presentation -Due to presenting marked hypoxia on RA, as well as response in ED to 1x dose, qd IV dexamethasone ordered -Due to multiple elevated inflammatory markers, specifically CRP, aligning in current research for worse prognosis, ministration of remdesivir was initiated -sc lovenox ordered -On vaportherm at 90% at this time, 93% -incentive spirometry, VBG, Tessalon Perles all ordered -Covid 19 order set completed for follow-up 12 hour labs, with daily labs -mdi's for SOB and coughing -consulted pulm -transfer to ICU status -with elevated pBNP, will give lasix x 1 #Dehydration secondary to poor oral intake from multiple days of vomiting and diarrhea -s/p some fluids in the ED -Initial lactic 1.5 #Abdominal pain -Mild dilation of the pancreatic duct and fatty liver seen on imaging -Patient has had roughly 5 days of emesis, last day which she endorsed coffee- ground emesis -Responded well to IV steroids, which will be continued in the setting of her hypoxic respiratory failure/Covid pneumonia -IV Zofran PRN, po protonix #Fatty liver -Identified on CT abdomen and pelvis -Patient is not have history of diabetes or impaired fasting glucose -Triglycerides level ordered -obesity, will defer PCP to refer to nutrition #Reported coffee-ground emesis -Patient reported that today, the fifth day of vomiting, she began to have coffee ground -Hemoglobin 12.8 on presentation -po protonix ordered -monitor CBC daily #Mild hypokalemia -monitor daily BMP #DVT prophylaxis: sc lovenox Disposition: Pending improvement, currently upgraded to ICU VS,Fishbone, I+O VS, Fishbone, I+O Laboratory Tests 07/25/20 04:50 Vital Signs Date Time Temp Pulse Resp B/P (MAP) Pulse Ox O2 Delivery O2 Flow Rate FiO2 07/25/20 12:00 97.9 67 24 110/62 (78) 95 HVNI-Vapotherm 40.0 70 I&O- Last 24 Hours up to 6 AM 07/25/20 05:59 Intake Total 1030 ml Output Total 890 ml Balance 140 ml MACARENA RAMON MD Jul 25, 2020 16:03
[2020-07-25] MEDS ORDERED: FUROSEMIDE 40MG/4ML VIAL (J1940) IV ONE (17:00)
[2020-07-26] VITALS (9 sets, daily range): BP systolic 93–119; BP diastolic 56–67
[2020-07-26 05:09] LABS: HEMATOCRIT 37.1 % (36.0-47.0); HEMOGLOBIN 11.8 g/dl (12.0-15.5); LYMPH # 0.7 10^3/uL (1.5-5.0); LYMPH % 14.8 % (24.0-44.0); MEAN CORPUSCULAR HEMOGLOBIN 29.3 pg (27.0-33.0); MEAN CORPUSCULAR HGB CONC 31.8 g/dl (32.0-36.5); MEAN CORPUSCULAR VOLUME 92.1 fl (80.0-96.0); MONO # 0.4 10^3/uL (0.0-0.8); MONO % 7.8 % (0.0-5.0); NEUTROPHILS # 3.6 10^3/uL (1.5-8.5); NEUTROPHILS % 76.6 % (36.0-66.0); PLATELET COUNT, AUTOMATED 319 10^3/uL (150-450); RED BLOOD COUNT 4.03 10^6/uL (4.00-5.40); WHITE BLOOD COUNT 4.7 10^3/uL (4.0-10.0)
[2020-07-26 05:41] LABS: INR 1.08; PARTIAL THROMBOPLASTIN TIME 24.1 SECONDS (24.2-38.5); PROTHROMBIN TIME 14.2 SECONDS (12.5-14.3)
[2020-07-26 05:43] LABS: ALBUMIN 2.5 GM/DL (3.2-5.2); ALT/SGPT 60 U/L (12-78); BILIRUBIN,DIRECT 0.1 MG/DL (0.0-0.2); BILIRUBIN,TOTAL 0.4 MG/DL (0.2-1.0); BLOOD UREA NITROGEN 21 MG/DL (7-18); CALCIUM LEVEL 8.2 MG/DL (8.5-10.1); CARBON DIOXIDE LEVEL 27 MEQ/L (21-32); CHLORIDE LEVEL 105 MEQ/L (98-107); CREATININE FOR GFR 0.68 MG/DL (0.55-1.30); FERRITIN 1017 NG/ML (8-252); GLOMERULAR FILTRATION RATE > 60.0 (>51); GLUCOSE, FASTING 110 MG/DL (70-100); MAGNESIUM LEVEL 2.2 MG/DL (1.8-2.4); NT-PRO BNP 435 PG/ML (<125); POTASSIUM SERUM 3.7 MEQ/L (3.5-5.1); SODIUM LEVEL 140 MEQ/L (136-145); TOTAL PROTEIN 6.3 GM/DL (6.4-8.2)
[2020-07-26 05:46] LABS: D-DIMER QUANT 870.41 ng/ml (<500)
[2020-07-26] MEDS: COMBIVENT RESPIMAT 100-20MCG INHALER 4GM INH SCH ×2 (08:37→19:28)
[2020-07-26] MEDS ORDERED: ASCORBIC ACID 250 MG TAB PO SCH (09:00)
[2020-07-26] MEDS: ENOXAPARIN 40MG/0.4ML SYRINGE (J1650 PER 10MG) SC SCH (09:24)
[2020-07-26] MEDS: dexameTHASONE 4 MG/ML 1ML VIAL (J1100 PER 1MG) IV SCH (09:24)
[2020-07-26] MEDS: PANTOPRAZOLE 20 MG TAB PO SCH (09:24)
[2020-07-26] MEDS: BENZONATATE 100 MG CAP PO PRN ×2 (09:24→16:07)
[2020-07-26] MEDS: guaiFENesin ER 600 MG TAB PO SCH ×2 (09:24→19:34)
[2020-07-26] MEDS: SODIUM CHLORIDE 0.9% INJ 10 ML SYR IV SCH (09:25)
[2020-07-26] MEDS ORDERED: PILL CUTTER 1 EACH XX PRN (13:00)
--- NOTE | 2020-07-26 15:10 | IPNPDOC ---
Date Seen The patient was seen on 07/26/20. Progress Note SUBJECTIVE: Shannon was seen and examined early this afternoon at the bedside while lying upright in her COVID ICU bed. She had just finished eating her lunch and tolerated it well. She reports waking this morning with a strong cough productive of [id number] sputum that was significant enough to elicit one episode of non-bloody emesis and dry heaving. At the time of our exam, she complained of generalized fatigue, but that her cough is much less prominent than it had been in the morning, and she had no nausea. In terms of her breathing, she feels mildly short of breath but overall improved from yesterday and is tolerating the high flow O2/vapotherm without any significant issues. Per review, she was became more hypoxic on Sat (07/24) into Sun (07/25) overnight and placed on vapotherm and was somnolent at times on 80% FiO2 with ABG results indicative of respiratory acidosis. In addition, her BNP was elevated and she was given a one-time dose of IV lasix. OBJECTIVE PHYSICAL EXAMINATION: VITAL SIGNS: Please see below. GENERAL: More alert and interactive today during our visit versus yesterday. female lying upright in bed, wearing high flow nasal cannula. Alert and oriented 3. HEENT: Noninjected, anicteric sclera. Wearing high flow NC. CARDIOVASCULAR: Regular rate, regular rhythm. Normal S1, S2. Difficult to appreciate for any discernible rubs or murmurs due to background noise of high flow nasal cannula, as well as limitations of temporary stethoscope. RESPIRATORY: Wearing high flow nasal cannula in the form of Vapotherm set at 35% FiO2 and 40 L saturating around 92-93%. Diminished breath sounds throughout with quite limited tidal volume. Faint by basilar inspiratory crackles. Cough was elicited times during auscultation. Symmetric chest expansion. Speaking full sentences. ABDOMEN: Soft obese. Nondistended. Mild tenderness of right upper quadrant. No rigidity. Hypoactive bowel sounds present. Very tanned skin over abdomen. EXTREMITIES: Bilateral lower extremities without edema with no signs of clubbing or cyanosis. 2+ radial and dorsalis pedis pulses bilaterally. NEUROLOGICAL: Awake, alert and oriented 3, no focal neurologic deficits appr eciable. Non-dysarthric speech. PSYCHIATRIC: Mood and affect appear appropriate. LABORATORY DATA, IMAGING STUDIES, MICROBIOLOGY: Please see below. Laboratory Data reviewed today, notably: Ferritin continues to downtrend for the second consecutive day (1017 today vs 1229 yesterday) Procalcitionin continues to downtrend (0.19 today vs 0.36 yesterday) BNP downtrending today versus yesterday s/p IV Lasix x1 (435 today vs 865 yesterday) IMAGING: Chest Xray, 07/23/20 IMPRESSION: Poor inspiratory chest with perihilar haziness which may be reflection of vascular crowding and low inflation, however, there is localized density in the right upper lobe consistent with infiltrate and pneumonia. Additional perihilar infiltrates are not excluded. CT abdomen/pelvis, 07/23/20 IMPRESSION: 1. Fluid throughout the colon to the rectum consistent with diarrhea. 2. Mild bibasilar ground-glass infiltrates with associated atelectasis consistent with pneumonia. 3. Fatty infiltration of the liver. 4. Mild distention of the main pancreatic duct which tapers to the ampulla. 5. Otherwise negative CT abdomen/pelvis. No bowel obstruction. CTA, 07/23/20 IMPRESSION: 1. New bilateral ground-glass pulmonary infiltrates with areas of atelectasis and early consolidation consistent with pneumonia which is greatest in the upper lobes. 2. Probable fatty infiltration of the liver. 3. Otherwise negative CTA chest. No interval pulmonary embolism is seen since 05/28/2017. ASSESSMENT AND PLAN: This is a 59 yo female w/ h/o mitral valve prolapse and obesity who presented to the ED on 07/23/2020 with a confirmed positive COVID-19 test on 07/17 and 5 days fevers, RUQ abdominal pain, and non-bloody emesis who was admitted primary for monitoring and treatment of COVID-19 pneumonia with bilateral infiltrates. #Acute hypoxic respiratory failure COVID-19 pneumonia/pneumonitis -Presented febrile with 84% saturation on room air with relevant labs: D-dimer (1019), LDH (356), ferritin (1146), CRP (20), ESR (64); of note, patient does not have a history of any obstructive, restrictive, or reactive airway diseas -Currently, pt's vapotherm FiO2 turned down to 85% from the 90% she'd been on the past 24-plus hours, and she continues with the maximum of 40L; tolerating this decrease well with saturations around 92-93% -Current respiratory goal moving forward: have her tolerate 35L and 60-65% FiO2 on vapotherm - - should she do so, she could then be transferred out of the COVID ICU to the regular COVID floor (4 [address]) -Due to worsening hypoxia necessitating switch to vapotherm yesterday, dosing of 6 mg dexamethasone switched to BID from qd -c/w remdesivir -zinc and vitamin C supplementation added today as administration has shown some benefit and no harm in current covid treatment literature -incentive spirometry; Marquez Gomez; mdi's for SOB and coughing; mucinex; daily lovenox -BNP dropped today after x1 lasix dose yesterday -Ferritin and procalcitonin continue to downtrend #Dehydration secondary to poor oral intake from multiple days of vomiting and diarrhea -s/p some fluids in the ED -Initial lactic 1.5 #Abdominal pain, improved -Mild dilation of the pancreatic duct and fatty liver seen on initial imaging -Responded well to IV steroids, which will be continued in the setting of her hypoxic respiratory failure/Covid pneumonia -IV Zofran PRN, po protonix #Fatty liver -Identified on CT abdomen and pelvis -Patient does not have history of diabetes or impaired fasting glucose -Triglycerides level ordered -obesity, will defer PCP to refer to nutrition #Normocytic hypochromic anemia -Hgb 11.8 today, marking second consecutive day of increase -For reference, patient reported episode of coffee-ground emesis on day of presentation with Hgb of 12.8; *there's been no coffee-ground emesis or hematemesis reported since time of admission -po protonix ordered -monitor CBC daily -Per review of records, does not appear pt has had iron panel workup; *Fe panel subsequently ordered today #Mild hypokalemia on presentation, resolved #DVT prophylaxis: sc lovenox Disposition: Pending improvement in oxygen demands and hypoxia VS, I&O, 24H, Fishbone Vital Signs/I&O Vital Signs Date Time Temp Pulse Resp B/P (MAP) Pulse Ox O2 Delivery O2 Flow Rate FiO2 07/26/20 14:00 88 28 86 HVNI-Vapotherm 40.0 85 07/26/20 12:00 100.2 102/60 (74) I&O- Last 24 Hours up to 6 AM 07/26/20 06:00 Intake Total 1420 ml Output Total 800 ml Balance 620 ml Laboratory Data 24H LABS Laboratory Tests 2 07/26/20 04:48: Immature Granulocyte % (Auto) 0.8, Neutrophils (%) (Auto) 76.6H, Lymphocytes (%) (Auto) 14.8L, Monocytes (%) (Auto) 7.8H, Eosinophils (%) (Auto) 0.0, Basophils (%) (Auto) 0.0, Neutrophils # (Auto) 3.6, Lymphocytes # (Auto) 0.7L, Monocytes # (Auto) 0.4, Eosinophils # (Auto) 0.0, Basophils # (Auto) 0.0, Nucleated Red Blood Cells % (auto) 0.0, Prothrombin Time 14.2H, Prothromb Time International Ratio 1.08, Activated Partial Thromboplast Time 24.1L, Fibrinogen 552H, D-Dimer, Quantitative 870.41H, Anion Gap 8, Glomerular Filtration Rate > 60.0, Calcium Level 8.2L, Magnesium Level 2.2, Ferritin 1017H, Total Bilirubin 0.4, Direct Bilirubin 0.1, Aspartate Amino Transf (AST/SGOT) 28, Alanine Aminotransferase (A LT/SGPT) 60, Alkaline Phosphatase 124H, MI-Zre-A-Type Natriuretic Peptide 435H, Total Protein 6.3L, Albumin 2.5L, Albumin/Globulin Ratio 0.7L, Procalcitonin 0.19 CBC/BMP Laboratory Tests 07/26/20 04:48 Microbiology Microbiology 07/23/20 Blood Culture - Preliminary, Resulted No Growth after 48 hours. All Specime... 07/23/20 Blood Culture - Preliminary, Resulted No Growth after 48 hours. All Specime... RYAN KURTZ D.O. Jul 26, 2020 15:10
[2020-07-26] MEDS: ZINC SULFATE 220 MG CAP PO SCH (16:07)
[2020-07-26] MEDS: ASCORBIC ACID 500 MG TAB PO SCH ×2 (16:07→19:34)
[2020-07-26 17:02] LABS: PERCENT SATURATION 32.6 % (13.2-45.0)
[2020-07-26] MEDS: dexameTHASONE 20MG/5ML VIAL (J1100 PER 1MG) IV SCH (19:35)
[2020-07-27] VITALS: BP 116/65
[2020-07-27 04:00] VITALS: BP 115/64
[2020-07-27 05:04] LABS: BASO % 0.3 % (0.0-1.0); HEMATOCRIT 36.1 % (36.0-47.0); HEMOGLOBIN 11.8 g/dl (12.0-15.5); LYMPH # 0.5 10^3/uL (1.5-5.0); LYMPH % 11.7 % (24.0-44.0); MEAN CORPUSCULAR HEMOGLOBIN 30.5 pg (27.0-33.0); MEAN CORPUSCULAR HGB CONC 32.7 g/dl (32.0-36.5); MEAN CORPUSCULAR VOLUME 93.3 fl (80.0-96.0); MONO # 0.3 10^3/uL (0.0-0.8); MONO % 7.4 % (0.0-5.0); NEUTROPHILS # 3.2 10^3/uL (1.5-8.5); NEUTROPHILS % 80.3 % (36.0-66.0); PLATELET COUNT, AUTOMATED 329 10^3/uL (150-450); RED BLOOD COUNT 3.87 10^6/uL (4.00-5.40); WHITE BLOOD COUNT 3.9 10^3/uL (4.0-10.0)
[2020-07-27 05:19] LABS: INR 1.08; PROTHROMBIN TIME 14.2 SECONDS (12.5-14.3)
[2020-07-27 05:20] LABS: PARTIAL THROMBOPLASTIN TIME 25.8 SECONDS (24.2-38.5)
[2020-07-27 05:22] LABS: D-DIMER QUANT 952.9 ng/ml (<500)
[2020-07-27 05:40] LABS: ALBUMIN 2.4 GM/DL (3.2-5.2); ALT/SGPT 75 U/L (12-78); BILIRUBIN,DIRECT 0.2 MG/DL (0.0-0.2); BILIRUBIN,TOTAL 0.4 MG/DL (0.2-1.0); BLOOD UREA NITROGEN 17 MG/DL (7-18); CALCIUM LEVEL 8.3 MG/DL (8.5-10.1); CARBON DIOXIDE LEVEL 27 MEQ/L (21-32); CHLORIDE LEVEL 106 MEQ/L (98-107); CREATININE FOR GFR 0.69 MG/DL (0.55-1.30); FERRITIN 977 NG/ML (8-252); GLOMERULAR FILTRATION RATE > 60.0 (>51); GLUCOSE, FASTING 158 MG/DL (70-100); MAGNESIUM LEVEL 2.3 MG/DL (1.8-2.4); NT-PRO BNP 313 PG/ML (<125); POTASSIUM SERUM 4.1 MEQ/L (3.5-5.1); SODIUM LEVEL 140 MEQ/L (136-145); TOTAL PROTEIN 6.3 GM/DL (6.4-8.2)
[2020-07-27 08:00] VITALS: BP 119/68
[2020-07-27] MEDS: COMBIVENT RESPIMAT 100-20MCG INHALER 4GM INH SCH ×2 (08:08→20:34)
[2020-07-27] MEDS: ENOXAPARIN 40MG/0.4ML SYRINGE (J1650 PER 10MG) SC SCH (08:12)
[2020-07-27] MEDS: ASCORBIC ACID 500 MG TAB PO SCH ×2 (08:12→20:54)
[2020-07-27] MEDS: dexameTHASONE 20MG/5ML VIAL (J1100 PER 1MG) IV SCH ×2 (08:12→20:53)
[2020-07-27] MEDS: SODIUM CHLORIDE 0.9% INJ 10 ML SYR IV SCH (08:13)
[2020-07-27] MEDS: ZINC SULFATE 220 MG CAP PO SCH (08:13)
[2020-07-27] MEDS: guaiFENesin ER 600 MG TAB PO SCH ×2 (08:13→20:54)
[2020-07-27] MEDS: PANTOPRAZOLE 20 MG TAB PO SCH (08:13)
--- NOTE | 2020-07-27 10:20 | IPNPDOC ---
Text Note Date of Service The patient was seen on 07/27/20. NOTE Subjective: Patient is a 59-year-old female with a PMHx of Prolapsed MV who presented to the ER on 07/23 after patient was noted to have abnormal behavior and vomiting. Patient has tested positive for COVID19 on 07/17. She was admitted to the hospital service for further evaluation and treatment Patient was seen and examined at the bedside. Currently patient is fully alert, oriented to person, place and time. Patient does report a cough. Denies any chest pain or palpitations. Denies any nausea, vomiting, abdominal pain, diarrhea, or urinary discomfort. Objective: Vitals (See below) General: Sitting up in bed, appears to be comfortable, AAOx3 HEENT: NC, AT CVS: +S1S2 Lungs: Fair air entry b/l, no appreciated wheezing, rhonchi or rales Abdomen: Soft, ND, NT, Extremities: - Edema, - Calf tenderness Imaging: Chest Xray, 07/23/20 Poor inspiratory chest with perihilar haziness which may be reflection of vascular crowding and low inflation, however, there is localized density in the right upper lobe consistent with infiltrate and pneumonia. Additional perihilar infiltrates are not excluded. CT abdomen/pelvis, 07/23/20 1. Fluid throughout the colon to the rectum consistent with diarrhea. 2. Mild bibasilar ground-glass infiltrates with associated atelectasis consistent with pneumonia. 3. Fatty infiltration of the liver. 4. Mild distention of the main pancreatic duct which tapers to the ampulla. 5. Otherwise negative CT abdomen/pelvis. No bowel obstruction. CTA, 07/23/20 1. New bilateral ground-glass pulmonary infiltrates with areas of atelectasis and early consolidation consistent with pneumonia which is greatest in the upper lobes. 2. Probable fatty infiltration of the liver. 3. Otherwise negative CTA chest. No interval pulmonary embolism is seen since 05/28/2017. Assessment and plan: Acute hypoxic respiratory failure - likely 2/2 COVID19 - Presented to the ER with complaints of shortness of breath; was found to be saturating at 84% on room air - Clinically reports improvement of her breathing still reports cough - She continues to Vapotherm at an FiO2 of 90% - Will continue to follow inflammatory markers - c/w Dexamethasone and Redeliver (Day#4) - c/w Incentive spirometry / acapella Dehydration - likely 2/2 poor oral intake - 2/2 multiple days of vomiting and diarrhea - s/p IV fluid hydration - Will start PT and OT once clinically improved s/p Abdominal pain, improved -Mild dilation of the pancreatic duct and fatty liver seen on initial imaging - c/w Protonix and Zofran PRN Fatty liver - c/w dietary changes Normocytic anemia - Hg has remained stable - No further reported episodes of coffee ground emesis / hematemesis - c/w Protonix and Carafate - Will have outpatient follow up with GI for likely endoscopy s/p Hypokalemia DVT prophylaxis - c/w Lovenox (re: COVID hyper-coagulable state) Disposition: - Pending clinical improvement VS,Tessa, I+O VSTessa I+O Laboratory Tests 07/27/20 04:48 Vital Signs Date Time Temp Pulse Resp B/P (MAP) Pulse Ox O2 Delivery O2 Flow Rate FiO2 07/27/20 08:30 87 HVNI-Vapotherm 40.0 95 07/27/20 08:30 74 26 07/27/20 08:00 97.8 119/68 (85) I&O- Last 24 Hours up to 6 AM 07/27/20 06:00 Intake Total 1570 ml Output Total 2200 ml Balance -630 ml RAFAT OTERO MD Jul 27, 2020 10:20
[2020-07-27 10:49] LABS: C REACTIVE PROTEIN QUANTITATIV 5.08 MG/DL (0.00-0.30)
[2020-07-27 12:00] VITALS: BP 119/57
[2020-07-27 16:00] VITALS: BP 126/66
[2020-07-27 21:03] VITALS: BP 133/64
[2020-07-28] VITALS: BP 117/58
[2020-07-28 03:31] VITALS: BP 124/68
[2020-07-28 03:47] LABS: BASO % 0.2 % (0.0-1.0); HEMATOCRIT 37.8 % (36.0-47.0); HEMOGLOBIN 11.9 g/dl (12.0-15.5); LYMPH # 0.8 10^3/uL (1.5-5.0); LYMPH % 8.4 % (24.0-44.0); MEAN CORPUSCULAR HGB CONC 31.5 g/dl (32.0-36.5); MONO # 0.4 10^3/uL (0.0-0.8); MONO % 4.5 % (0.0-5.0); NEUTROPHILS # 8.2 10^3/uL (1.5-8.5); NEUTROPHILS % 86.1 % (36.0-66.0); PLATELET COUNT, AUTOMATED 419 10^3/uL (150-450); RED BLOOD COUNT 4.11 10^6/uL (4.00-5.40); WHITE BLOOD COUNT 9.5 10^3/uL (4.0-10.0)
[2020-07-28 04:14] LABS: INR 1.08; PROTHROMBIN TIME 14.2 SECONDS (12.5-14.3)
[2020-07-28 04:17] LABS: D-DIMER QUANT 1806.76 ng/ml (<500)
[2020-07-28 04:20] LABS: ALBUMIN 2.5 GM/DL (3.2-5.2); ALT/SGPT 98 U/L (12-78); BILIRUBIN,DIRECT 0.1 MG/DL (0.0-0.2); BILIRUBIN,TOTAL 0.3 MG/DL (0.2-1.0); BLOOD UREA NITROGEN 17 MG/DL (7-18); CALCIUM LEVEL 8.7 MG/DL (8.5-10.1); CARBON DIOXIDE LEVEL 25 MEQ/L (21-32); CHLORIDE LEVEL 108 MEQ/L (98-107); CREATININE FOR GFR 0.78 MG/DL (0.55-1.30); FERRITIN 937 NG/ML (8-252); GLOMERULAR FILTRATION RATE > 60.0 (>51); GLUCOSE, FASTING 155 MG/DL (70-100); MAGNESIUM LEVEL 2.3 MG/DL (1.8-2.4); NT-PRO BNP 399 PG/ML (<125); SODIUM LEVEL 141 MEQ/L (136-145); TOTAL PROTEIN 6.8 GM/DL (6.4-8.2)
[2020-07-28 07:09] LABS: C REACTIVE PROTEIN QUANTITATIV 2.93 MG/DL (0.00-0.30)
[2020-07-28] MEDS: COMBIVENT RESPIMAT 100-20MCG INHALER 4GM INH SCH ×2 (07:35→20:49)
[2020-07-28 08:00] VITALS: BP 121/59
[2020-07-28] MEDS: ZINC SULFATE 220 MG CAP PO SCH (08:19)
[2020-07-28] MEDS: ENOXAPARIN 40MG/0.4ML SYRINGE (J1650 PER 10MG) SC SCH (08:19)
[2020-07-28] MEDS: dexameTHASONE 20MG/5ML VIAL (J1100 PER 1MG) IV SCH ×2 (08:19→20:27)
[2020-07-28] MEDS: PANTOPRAZOLE 20 MG TAB PO SCH (08:20)
[2020-07-28] MEDS: ASCORBIC ACID 500 MG TAB PO SCH ×2 (08:20→20:27)
[2020-07-28] MEDS: guaiFENesin ER 600 MG TAB PO SCH ×2 (08:20→20:27)
[2020-07-28] MEDS: SODIUM CHLORIDE 0.9% INJ 10 ML SYR IV SCH (08:20)
[2020-07-28 12:00] VITALS: BP 117/60
--- NOTE | 2020-07-28 12:07 | IPNPDOC ---
Text Note Date of Service The patient was seen on 07/28/20. NOTE Subjective: Patient is a 59-year-old female with a PMHx of Prolapsed MV who presented to the ER on 07/23 after patient was noted to have abnormal behavior and vomiting. Patient has tested positive for COVID19 on 07/17. She was admitted to the hospital service for further evaluation and treatment Patient was seen and examined at the bedside. Patient is seen sitting up. Reports some shortness of breath with exertion. Reports a mild cough. Denies any chest pain, palpitations. Has not experience any nausea, vomiting, abdominal pain, diarrhea, or urinary discomfort. Objective: Vitals (See below) General: Sitting up in bed, appears to be comfortable, no acute distress, awake, alert and oriented 3 HEENT: NC, AT CVS: +S1S2 Lungs: There appears to be fair air entry bilaterally without any auscultated rhonchi, crackles or wheezing Abdomen: Soft, no appreciable distention or tenderness Extremities: Lower extremities without any edema, - Calf tenderness Imaging: Chest Xray, 07/23/20 Poor inspiratory chest with perihilar haziness which may be reflection of vascular crowding and low inflation, however, there is localized density in the right upper lobe consistent with infiltrate and pneumonia. Additional perihilar infiltrates are not excluded. CT abdomen/pelvis, 07/23/20 1. Fluid throughout the colon to the rectum consistent with diarrhea. 2. Mild bibasilar ground-glass infiltrates with associated atelectasis consistent with pneumonia. 3. Fatty infiltration of the liver. 4. Mild distention of the main pancreatic duct which tapers to the ampulla. 5. Otherwise negative CT abdomen/pelvis. No bowel obstruction. CTA, 07/23/20 1. New bilateral ground-glass pulmonary infiltrates with areas of atelectasis and early consolidation consistent with pneumonia which is greatest in the upper lobes. 2. Probable fatty infiltration of the liver. 3. Otherwise negative CTA chest. No interval pulmonary embolism is seen since 05/28/2017. Assessment and plan: Acute hypoxic respiratory failure - likely 2/2 COVID19 pneumonia - Presented to the ER with complaints of shortness of breath; was found to be saturating at 84% on room air - Clinically patient has reported improvement of her symptoms but still experiences shortness breath with exertion and a mild cough - Her FiO2 requirement has been down trending - Inflammatory markers have been improving - c/w Dexamethasone and Redeliver (Day#5) - c/w Incentive spirometry / acapella Dehydration - likely 2/2 poor oral intake - 2/2 multiple days of vomiting and diarrhea - s/p IV fluid hydration - Will start PT and OT once clinically improved - anticipate once patient is off VapoTherm s/p Abdominal pain, improved - Mild dilation of the pancreatic duct and fatty liver seen on initial imaging - c/w Protonix and Zofran PRN Fatty liver - c/w dietary changes Normocytic anemia - Hg has remained stable - No further reported episodes of coffee ground emesis / hematemesis - c/w Protonix and Carafate - Will have outpatient follow up with GI for likely endoscopy s/p Hypokalemia DVT prophylaxis - c/w Lovenox (re: COVID hyper-coagulable state) Disposition: - Pending clinical improvement VS,Fishbone, I+O VS, Fishbone, I+O Laboratory Tests 07/28/20 03:32 Vital Signs Date Time Temp Pulse Resp B/P (MAP) Pulse Ox O2 Delivery O2 Flow Rate FiO2 07/28/20 08:00 97.9 80 24 121/59 (79) 91 HVNI-Vapotherm 40.0 70 I&O- Last 24 Hours up to 6 AM0 07/28/20 06:00 Intake Total 1660 ml Output Total 1500 ml Balance 160 ml RAFAT OTERO MD Jul 28, 2020 12:07
[2020-07-28 16:00] VITALS: BP 120/63
[2020-07-28] MEDS: BENZONATATE 100 MG CAP PO PRN (20:28)
[2020-07-28 20:36] VITALS: BP 100/69
[2020-07-29] VITALS (7 sets, daily range): BP systolic 112–137; BP diastolic 60–69; O2SAT 92–93
[2020-07-29 05:00] LABS: BASO % 0.2 % (0.0-1.0); HEMATOCRIT 35.6 % (36.0-47.0); HEMOGLOBIN 11.2 g/dl (12.0-15.5); LYMPH # 0.7 10^3/uL (1.5-5.0); LYMPH % 7.7 % (24.0-44.0); MEAN CORPUSCULAR HEMOGLOBIN 29.4 pg (27.0-33.0); MEAN CORPUSCULAR HGB CONC 31.5 g/dl (32.0-36.5); MEAN CORPUSCULAR VOLUME 93.4 fl (80.0-96.0); MONO # 0.6 10^3/uL (0.0-0.8); MONO % 5.8 % (0.0-5.0); NEUTROPHILS # 8.1 10^3/uL (1.5-8.5); NEUTROPHILS % 84.8 % (36.0-66.0); PLATELET COUNT, AUTOMATED 410 10^3/uL (150-450); RED BLOOD COUNT 3.81 10^6/uL (4.00-5.40); WHITE BLOOD COUNT 9.6 10^3/uL (4.0-10.0)
[2020-07-29 05:12] LABS: INR 1.09; PROTHROMBIN TIME 14.3 SECONDS (12.5-14.3)
[2020-07-29 05:13] LABS: PARTIAL THROMBOPLASTIN TIME 23.1 SECONDS (24.2-38.5)
[2020-07-29 05:15] LABS: D-DIMER QUANT 1538.61 ng/ml (<500)
[2020-07-29 05:32] LABS: ALBUMIN 2.6 GM/DL (3.2-5.2); ALT/SGPT 131 U/L (12-78); BILIRUBIN,DIRECT 0.2 MG/DL (0.0-0.2); BILIRUBIN,TOTAL 0.4 MG/DL (0.2-1.0); BLOOD UREA NITROGEN 19 MG/DL (7-18); CALCIUM LEVEL 8.1 MG/DL (8.5-10.1); CARBON DIOXIDE LEVEL 26 MEQ/L (21-32); CHLORIDE LEVEL 108 MEQ/L (98-107); CREATININE FOR GFR 0.64 MG/DL (0.55-1.30); FERRITIN 941 NG/ML (8-252); GLOMERULAR FILTRATION RATE > 60.0 (>51); GLUCOSE, FASTING 135 MG/DL (70-100); MAGNESIUM LEVEL 2.2 MG/DL (1.8-2.4); NT-PRO BNP 359 PG/ML (<125); POTASSIUM SERUM 4.5 MEQ/L (3.5-5.1); SODIUM LEVEL 141 MEQ/L (136-145); TOTAL PROTEIN 5.9 GM/DL (6.4-8.2)
[2020-07-29] MEDS: COMBIVENT RESPIMAT 100-20MCG INHALER 4GM INH SCH ×2 (07:14→19:56)
[2020-07-29] MEDS: dexameTHASONE 20MG/5ML VIAL (J1100 PER 1MG) IV SCH ×2 (08:20→20:45)
[2020-07-29] MEDS: ZINC SULFATE 220 MG CAP PO SCH (08:21)
[2020-07-29] MEDS: BENZONATATE 100 MG CAP PO PRN (08:21)
[2020-07-29] MEDS: guaiFENesin ER 600 MG TAB PO SCH ×2 (08:21→20:45)
[2020-07-29] MEDS: ASCORBIC ACID 500 MG TAB PO SCH ×2 (08:21→20:45)
[2020-07-29] MEDS: ENOXAPARIN 40MG/0.4ML SYRINGE (J1650 PER 10MG) SC SCH (08:21)
[2020-07-29 08:22] LABS: C REACTIVE PROTEIN QUANTITATIV 1.62 MG/DL (0.00-0.30)
[2020-07-29] MEDS: PANTOPRAZOLE 20 MG TAB PO SCH (12:30)
--- NOTE | 2020-07-29 13:17 | IPNPDOC ---
Text Note Date of Service The patient was seen on 07/29/20. NOTE Subjective: Patient is a 59-year-old female with a PMHx of Prolapsed MV who presented to the ER on 07/23 after patient was noted to have abnormal behavior and vomiting. Patient has tested positive for COVID19 on 07/17. She was admitted to the hospital service for further evaluation and treatment Patient was seen and examined at the bedside. Currently patient reports that her breathing is doing slightly better, still report a cough. Denies any chest pain. Patient does not experience any nausea, vomiting, abdominal pain, diarrhea, or urinary discomfort. Objective: Vitals (See below) General: Again, is sitting up in bed, does not appear to be in any distress, is awake, alert and oriented 3 HEENT: NC, AT CVS: +S1S2 Lungs: There appears to be fair air entry bilaterally without any evidence of rhonchi, crackles or wheezing Abdomen: Abdomen remains soft without any distention or tenderness Extremities: Lower extremities do not reveal any pitting edema, - Calf tenderness Imaging: Chest Xray, 07/23/20 Poor inspiratory chest with perihilar haziness which may be reflection of vascular crowding and low inflation, however, there is localized density in the right upper lobe consistent with infiltrate and pneumonia. Additional perihilar infiltrates are not excluded. CT abdomen/pelvis, 07/23/20 1. Fluid throughout the colon to the rectum consistent with diarrhea. 2. Mild bibasilar ground-glass infiltrates with associated atelectasis consistent with pneumonia. 3. Fatty infiltration of the liver. 4. Mild distention of the main pancreatic duct which tapers to the ampulla. 5. Otherwise negative CT abdomen/pelvis. No bowel obstruction. CTA, 07/23/20 1. New bilateral ground-glass pulmonary infiltrates with areas of atelectasis and early consolidation consistent with pneumonia which is greatest in the upper lobes. 2. Probable fatty infiltration of the liver. 3. Otherwise negative CTA chest. No interval pulmonary embolism is seen since 05/28/2017. Assessment and plan: Acute hypoxic respiratory failure - likely 2/2 COVID19 pneumonia - Presented to the ER with complaints of shortness of breath; was found to be saturating at 84% on room air - Patient is clinically improving and reports improvement of her shortness breath with exertion. Denies any chest pain or palpitations - Her FiO2 requirement has continued to improve - Inflammatory markers have been improving - c/w Dexamethasone and Redeliver (Day#6) - c/w Incentive spirometry / acapella s/p Dehydration - likely 2/2 poor oral intake - 2/2 multiple days of vomiting and diarrhea - s/p IV fluid hydration - Anticipate starting physical therapy and occupational therapy within the next 24-48 hours s/p Abdominal pain, improved - Mild dilation of the pancreatic duct and fatty liver seen on initial imaging - c/w Protonix and Zofran PRN Fatty liver - c/w dietary changes Normocytic anemia - Hg has remained stable - No further reported episodes of coffee ground emesis / hematemesis - c/w Protonix and Carafate - Will have outpatient follow up with GI for likely endoscopy s/p Hypokalemia DVT prophylaxis - c/w Lovenox (re: COVID hyper-coagulable state) Disposition: - Will start PT / OT once off VapoTherm VS,Fishbone, I+O VS, Fishbone, I+O Laboratory Tests 07/29/20 04:18 Vital Signs Date Time Temp Pulse Resp B/P (MAP) Pulse Ox O2 Delivery O2 Flow Rate FiO2 07/29/20 12:00 96.8 91 20 126/62 (83) 93 HVNI-Vapotherm 20.0 50 I&O- Last 24 Hours up to 6 AM 07/29/20 06:00 Intake Total 1800 ml Output Total 2300 ml Balance -500 ml RAFAT OTERO MD Jul 29, 2020 13:17
[2020-07-30] VITALS (7 sets, daily range): BP systolic 111–139; BP diastolic 60–72; O2SAT 95
[2020-07-30 05:24] LABS: HEMATOCRIT 36.4 % (36.0-47.0); HEMOGLOBIN 11.7 g/dl (12.0-15.5); MEAN CORPUSCULAR HEMOGLOBIN 29.4 pg (27.0-33.0); MEAN CORPUSCULAR HGB CONC 32.1 g/dl (32.0-36.5); MEAN CORPUSCULAR VOLUME 91.5 fl (80.0-96.0); PLATELET COUNT, AUTOMATED 463 10^3/uL (150-450); RED BLOOD COUNT 3.98 10^6/uL (4.00-5.40); WHITE BLOOD COUNT 9.4 10^3/uL (4.0-10.0)
[2020-07-30 05:31] LABS: INR 1.05; PARTIAL THROMBOPLASTIN TIME 23.3 SECONDS (24.2-38.5); PROTHROMBIN TIME 13.9 SECONDS (12.5-14.3)
[2020-07-30 05:34] LABS: D-DIMER QUANT 1532.68 ng/ml (<500)
[2020-07-30 05:48] LABS: ALBUMIN 2.5 GM/DL (3.2-5.2); ALT/SGPT 104 U/L (12-78); BILIRUBIN,DIRECT 0.2 MG/DL (0.0-0.2); BILIRUBIN,TOTAL 0.4 MG/DL (0.2-1.0); BLOOD UREA NITROGEN 21 MG/DL (7-18); CALCIUM LEVEL 8.2 MG/DL (8.5-10.1); CARBON DIOXIDE LEVEL 28 MEQ/L (21-32); CHLORIDE LEVEL 106 MEQ/L (98-107); CPK CREATINE PHOSPHOKINASE 84 U/L (26-192); CREATININE FOR GFR 0.67 MG/DL (0.55-1.30); FERRITIN 838 NG/ML (8-252); GLOMERULAR FILTRATION RATE > 60.0 (>51); GLUCOSE, FASTING 141 MG/DL (70-100); LDH LACTATE DEHYDROGENASE 339 U/L (84-246); POTASSIUM SERUM 4.6 MEQ/L (3.5-5.1); SODIUM LEVEL 139 MEQ/L (136-145); TOTAL PROTEIN 6.2 GM/DL (6.4-8.2); TROPONIN I < 0.02 NG/ML (< 0.10)
[2020-07-30] MEDS: ENOXAPARIN 40MG/0.4ML SYRINGE (J1650 PER 10MG) SC SCH (08:07)
[2020-07-30] MEDS: PANTOPRAZOLE 20 MG TAB PO SCH (08:08)
[2020-07-30] MEDS: ZINC SULFATE 220 MG CAP PO SCH (08:08)
[2020-07-30] MEDS: dexameTHASONE 20MG/5ML VIAL (J1100 PER 1MG) IV SCH ×2 (08:08→19:42)
[2020-07-30] MEDS: ASCORBIC ACID 500 MG TAB PO SCH ×2 (08:08→19:43)
[2020-07-30] MEDS: guaiFENesin ER 600 MG TAB PO SCH ×2 (08:09→19:43)
[2020-07-30] MEDS: COMBIVENT RESPIMAT 100-20MCG INHALER 4GM INH SCH ×2 (08:09→19:43)
--- NOTE | 2020-07-30 10:57 | IPNPDOC ---
Text Note Date of Service The patient was seen on 07/30/20. NOTE Subjective: Patient is a 59-year-old female with a PMHx of Prolapsed MV who presented to the ER on 07/23 after patient was noted to have abnormal behavior and vomiting. Patient has tested positive for COVID19 on 07/17. She was admitted to the hospital service for further evaluation and treatment Patient was seen and examined at the bedside. Patient reports that she feels better today. She if off of VapoTherm and on high flow NC. She still reports SOB with exertion. Reports a non-productive cough. Denies any CP, Palpitations, N/V, abdominal pain, Diarrhea or urinary discomfort. Objective: Vitals (See below) General: Patient is sitting up in bed, does not appear to be in any acute distress, is awake, alert and oriented 3 HEENT: NC, AT CVS: +S1S2 Lungs: Air entry appears to be fair bilaterally without any auscultated wheezing, crackles or rhonchi Abdomen: On palpation abdomen is soft without tenderness and is nondistended Extremities: No edema noted, - Calf tenderness Imaging: Chest Xray, 07/23/20 Poor inspiratory chest with perihilar haziness which may be reflection of vascular crowding and low inflation, however, there is localized density in the right upper lobe consistent with infiltrate and pneumonia. Additional perihilar infiltrates are not excluded. CT abdomen/pelvis, 07/23/20 1. Fluid throughout the colon to the rectum consistent with diarrhea. 2. Mild bibasilar ground-glass infiltrates with associated atelectasis consistent with pneumonia. 3. Fatty infiltration of the liver. 4. Mild distention of the main pancreatic duct which tapers to the ampulla. 5. Otherwise negative CT abdomen/pelvis. No bowel obstruction. CTA, 07/23/20 1. New bilateral ground-glass pulmonary infiltrates with areas of atelectasis and early consolidation consistent with pneumonia which is greatest in the upper lobes. 2. Probable fatty infiltration of the liver. 3. Otherwise negative CTA chest. No interval pulmonary embolism is seen since 05/28/2017. Assessment and plan: Acute hypoxic respiratory failure - likely 2/2 COVID19 pneumonia - Presented to the ER with complaints of shortness of breath; was found to be saturating at 84% on room air - Patient still reports some shortness of breath with exertion. Reports a mild cough. Denies chest pain or palpitations - Patient has been transitioned off of Vapotherm is currently on high flow nasal cannula - Inflammatory markers continue to be trending down appropriately - c/w Dexamethasone and Remdesivir (Day#7) - c/w Incentive spirometry / acapella s/p Dehydration - likely 2/2 poor oral intake - 2/2 multiple days of vomiting and diarrhea - s/p IV fluid hydration - Will start PT today s/p Abdominal pain, improved - Mild dilation of the pancreatic duct and fatty liver seen on initial imaging - c/w Protonix and Zofran PRN Fatty liver - c/w dietary changes Normocytic anemia - Hg has remained stable - No further reported episodes of coffee ground emesis / hematemesis - c/w Protonix and Carafate - Will have outpatient follow up with GI for likely endoscopy s/p Hypokalemia DVT prophylaxis - c/w Lovenox (re: COVID hyper-coagulable state) Disposition: - s/p Vapotherm; currently on high-flow NC oxygen - Will start PT VS,Fishbone, I+O VS, Fishbone, I+O Laboratory Tests 07/30/20 04:45 Vital Signs Date Time Temp Pulse Resp B/P (MAP) Pulse Ox O2 Delivery O2 Flow Rate FiO2 07/30/20 08:00 97.4 69 18 113/64 (80) 96 High Flow Cannula 8.0 07/29/20 20:00 40 I&O- Last 24 Hours up to 6 AM 07/30/20 06:00 Intake Total 1560 ml Output Total 900 ml Balance 660 ml RAFAT OTERO MD Jul 30, 2020 10:56
[2020-07-31] VITALS: BP 124/71
[2020-07-31 04:00] VITALS: BP 108/55
[2020-07-31 08:00] VITALS: BP 108/57
[2020-07-31] MEDS: COMBIVENT RESPIMAT 100-20MCG INHALER 4GM INH SCH ×2 (08:00→19:42)
[2020-07-31] MEDS: ENOXAPARIN 40MG/0.4ML SYRINGE (J1650 PER 10MG) SC SCH (09:00)
[2020-07-31 09:20] LABS: BASO % 0.3 % (0.0-1.0); EOS % 0.1 % (0.0-3.0); HEMATOCRIT 39.8 % (36.0-47.0); HEMOGLOBIN 12.4 g/dl (12.0-15.5); LYMPH # 1.2 10^3/uL (1.5-5.0); LYMPH % 11.1 % (24.0-44.0); MEAN CORPUSCULAR HEMOGLOBIN 29.2 pg (27.0-33.0); MEAN CORPUSCULAR HGB CONC 31.2 g/dl (32.0-36.5); MEAN CORPUSCULAR VOLUME 93.9 fl (80.0-96.0); MONO # 0.9 10^3/uL (0.0-0.8); NEUTROPHILS # 8.4 10^3/uL (1.5-8.5); NEUTROPHILS % 78.5 % (36.0-66.0); PLATELET COUNT, AUTOMATED 515 10^3/uL (150-450); RED BLOOD COUNT 4.24 10^6/uL (4.00-5.40); WHITE BLOOD COUNT 10.7 10^3/uL (4.0-10.0)
[2020-07-31 09:32] LABS: INR 1.05; PROTHROMBIN TIME 13.9 SECONDS (12.5-14.3)
[2020-07-31 09:37] LABS: D-DIMER QUANT 1433.52 ng/ml (<500)
[2020-07-31 09:44] LABS: ALBUMIN 2.8 GM/DL (3.2-5.2); ALT/SGPT 88 U/L (12-78); BILIRUBIN,DIRECT 0.2 MG/DL (0.0-0.2); BILIRUBIN,TOTAL 0.5 MG/DL (0.2-1.0); BLOOD UREA NITROGEN 20 MG/DL (7-18); C REACTIVE PROTEIN QUANTITATIV 0.66 MG/DL (0.00-0.30); CALCIUM LEVEL 8.5 MG/DL (8.5-10.1); CARBON DIOXIDE LEVEL 26 MEQ/L (21-32); CHLORIDE LEVEL 104 MEQ/L (98-107); CREATININE FOR GFR 0.75 MG/DL (0.55-1.30); FERRITIN 883 NG/ML (8-252); GLOMERULAR FILTRATION RATE > 60.0 (>51); GLUCOSE, FASTING 133 MG/DL (70-100); MAGNESIUM LEVEL 2.2 MG/DL (1.8-2.4); POTASSIUM SERUM 4.2 MEQ/L (3.5-5.1); SODIUM LEVEL 137 MEQ/L (136-145); TOTAL PROTEIN 6.4 GM/DL (6.4-8.2)
[2020-07-31] MEDS ORDERED: predniSONE 20 MG TAB PO ONE (10:00)
[2020-07-31] MEDS: guaiFENesin ER 600 MG TAB PO SCH ×2 (10:24→20:03)
[2020-07-31] MEDS: ZINC SULFATE 220 MG CAP PO SCH (10:24)
[2020-07-31] MEDS: ASCORBIC ACID 500 MG TAB PO SCH ×2 (10:25→20:03)
--- NOTE | 2020-07-31 11:19 | IPNPDOC ---
Text Note Date of Service The patient was seen on 07/31/20. NOTE Subjective: Patient is a 59-year-old female with a PMHx of Prolapsed MV who presented to the ER on 07/23 after patient was noted to have abnormal behavior and vomiting. Patient has tested positive for COVID19 on 07/17. She was admitted to the hospital service for further evaluation and treatment Patient was seen and examined at the bedside. Patient is currently on 2 L of nasal cannula oxygen. Denies any chest pain or palpitations. Reports that her b reathing is doing relatively well. She has been ambulating around the room. Denies any significant expectoration with her cough. Denies any nausea, vomiting, abdominal pain, diarrhea, or urinary discomfort. Objective: Vitals (See below) General: Patient is sitting up in bed, does not appear to be in any acute distress, is awake, alert and oriented 3 HEENT: NC, AT CVS: +S1S2 Lungs: There appears to be fair air entry bilaterally without any evidence of rhonchi, crackles or wheezing Abdomen: Again, abdomen is soft without any appreciable tenderness or distention Extremities: Lower extremities are free of any pitting edema, - Calf tenderness Imaging: Chest Xray, 07/23/20 Poor inspiratory chest with perihilar haziness which may be reflection of vascular crowding and low inflation, however, there is localized density in the right upper lobe consistent with infiltrate and pneumonia. Additional perihilar infiltrates are not excluded. CT abdomen/pelvis, 07/23/20 1. Fluid throughout the colon to the rectum consistent with diarrhea. 2. Mild bibasilar ground-glass infiltrates with associated atelectasis consistent with pneumonia. 3. Fatty infiltration of the liver. 4. Mild distention of the main pancreatic duct which tapers to the ampulla. 5. Otherwise negative CT abdomen/pelvis. No bowel obstruction. CTA, 07/23/20 1. New bilateral ground-glass pulmonary infiltrates with areas of atelectasis and early consolidation consistent with pneumonia which is greatest in the upper lobes. 2. Probable fatty infiltration of the liver. 3. Otherwise negative CTA chest. No interval pulmonary embolism is seen since 05/28/2017. Assessment and plan: Acute hypoxic respiratory failure - likely 2/2 COVID19 pneumonia - Presented to the ER with complaints of shortness of breath; was found to be saturating at 84% on room air - s/p Vapotherm and High flow oxygen - c/w NC oxygen; currently saturating well on 2-3 L - Inflammatory markers continue to be trending down appropriately - Will start Prednisone taper; Will DC Dexamethasone (Day#8); s/p Remdesivir (Completed 5 day course) - c/w Incentive spirometry / acapella s/p Dehydration - likely 2/2 poor oral intake - 2/2 multiple days of vomiting and diarrhea - s/p IV fluid hydration - c/w PT - has been cleared for DC home - Anticipate DC within 24 hours s/p Abdominal pain, improved - Mild dilation of the pancreatic duct and fatty liver seen on initial imaging - c/w Protonix and Zofran PRN Fatty liver - c/w dietary changes Normocytic anemia - Hg has remained stable - No further reported episodes of coffee ground emesis / hematemesis - c/w Protonix and Carafate - Will have outpatient follow up with GI for likely endoscopy s/p Hypokalemia DVT prophylaxis - c/w Lovenox (re: COVID hyper-coagulable state) Disposition: - s/p Vapotherm and high-flow oxygen - c/w NC oxygen - Cleared PT - Anticipate DC within 24 hours VS,Fishbone, I+O VS, Fishbone, I+O Laboratory Tests 07/31/20 09:03 Vital Signs Date Time Temp Pulse Resp B/P (MAP) Pulse Ox O2 Delivery O2 Flow Rate FiO2 07/31/20 08:00 98.0 72 20 108/57 (74) 90 Nasal Cannula 2.0 07/30/20 16:19 40 I&O- Last 24 Hours up to 6 AM 07/31/20 06:00 Intake Total 1200 ml Balance 1200 ml RAFAT OTERO MD Jul 31, 2020 11:19
[2020-07-31] MEDS: PANTOPRAZOLE 20 MG TAB PO SCH (13:21)
[2020-07-31 16:00] VITALS: BP 112/63
[2020-07-31 20:00] VITALS: BP 112/63
[2020-08-01 04:00] VITALS: BP 110/77
[2020-08-01] MEDS: ENOXAPARIN 40MG/0.4ML SYRINGE (J1650 PER 10MG) SC SCH (08:52)
[2020-08-01] MEDS: guaiFENesin ER 600 MG TAB PO SCH (08:53)
[2020-08-01] MEDS: PANTOPRAZOLE 20 MG TAB PO SCH (08:54)
[2020-08-01] MEDS: ZINC SULFATE 220 MG CAP PO SCH (08:54)
[2020-08-01] MEDS: ASCORBIC ACID 500 MG TAB PO SCH (08:54)
[2020-08-01 08:59] VITALS: BP 114/56
[2020-08-01 09:00] VITALS: BP 114/72
[2020-08-01] MEDS ORDERED: predniSONE 20 MG TAB PO SCH (09:00)
[2020-08-01] MEDS ORDERED: MUCI600T31 PO (09:18)
[2020-08-01] MEDS ORDERED: PRED10TA2 PO (09:18)
[2020-08-01 09:33] LABS: BASO % 0.4 % (0.0-1.0); EOS # 0.1 10^3/uL (0.0-0.5); EOS % 0.5 % (0.0-3.0); HEMATOCRIT 40.1 % (36.0-47.0); HEMOGLOBIN 12.9 g/dl (12.0-15.5); MEAN CORPUSCULAR HEMOGLOBIN 29.7 pg (27.0-33.0); MEAN CORPUSCULAR HGB CONC 32.2 g/dl (32.0-36.5); MEAN CORPUSCULAR VOLUME 92.2 fl (80.0-96.0); MONO # 0.9 10^3/uL (0.0-0.8); MONO % 8.4 % (0.0-5.0); NEUTROPHILS # 7.9 10^3/uL (1.5-8.5); NEUTROPHILS % 70.9 % (36.0-66.0); PLATELET COUNT, AUTOMATED 541 10^3/uL (150-450); RED BLOOD COUNT 4.35 10^6/uL (4.00-5.40); WHITE BLOOD COUNT 11.2 10^3/uL (4.0-10.0)
[2020-08-01 09:43] LABS: INR 1.01; PROTHROMBIN TIME 13.5 SECONDS (12.5-14.3)
[2020-08-01 09:44] LABS: PARTIAL THROMBOPLASTIN TIME 22.7 SECONDS (24.2-38.5)
[2020-08-01 09:47] LABS: D-DIMER QUANT 1293.84 ng/ml (<500)
[2020-08-01 09:57] LABS: ALT/SGPT 86 U/L (12-78); BILIRUBIN,DIRECT 0.3 MG/DL (0.0-0.2); BILIRUBIN,TOTAL 0.7 MG/DL (0.2-1.0); BLOOD UREA NITROGEN 21 MG/DL (7-18); C REACTIVE PROTEIN QUANTITATIV 0.48 MG/DL (0.00-0.30); CALCIUM LEVEL 8.5 MG/DL (8.5-10.1); CARBON DIOXIDE LEVEL 28 MEQ/L (21-32); CHLORIDE LEVEL 103 MEQ/L (98-107); CREATININE FOR GFR 0.75 MG/DL (0.55-1.30); FERRITIN 997 NG/ML (8-252); GLOMERULAR FILTRATION RATE > 60.0 (>51); GLUCOSE, FASTING 77 MG/DL (70-100); MAGNESIUM LEVEL 2.4 MG/DL (1.8-2.4); SODIUM LEVEL 138 MEQ/L (136-145); TOTAL PROTEIN 6.4 GM/DL (6.4-8.2)
[2020-08-01] MEDS ORDERED: PANT20TA6 PO (10:09)
--- NOTE | 2020-08-01 10:11 | DS.PDOC ---
Discharge Summary General Date of Admission Jul 24, 2020 at 00:01 Date of Discharge 08/01/2020 Discharge Summary PROCEDURES PERFORMED DURING STAY: [None]. ADMITTING DIAGNOSES / DISCHARGE DIAGNOSES: Acute hypoxic respiratory failure - likely 2/2 COVID19 pneumonia s/p Dehydration - likely 2/2 poor oral intake - 2/2 multiple days of vomiting and diarrhea s/p Abdominal pain, improved Fatty liver Normocytic anemia s/p Hypokalemia DVT prophylaxis COMPLICATIONS/CHIEF COMPLAINT: Shortness of breath HISTORY OF PRESENT ILLNESS: Patient is a 59-year-old female with a PMHx of Prolapsed MV who prese nted to the ER on 07/23 after patient was noted to have abnormal behavior and vomiting. Patient has tested positive for COVID19 on 07/17. She was admitted to the hospital service for further evaluation and treatment. HOSPITAL COURSE: Acute hypoxic respiratory failure - likely 2/2 COVID19 pneumonia - Patient is currently saturating well on room air - s/p Vapotherm and High flow oxygen - c/w NC oxygen; currently saturating well on 2-3 L - Inflammatory markers have continued to improve - c/w Prednisone taper; Will DC Dexamethasone (Day#8); s/p Remdesivir (Completed 5 day course) - c/w Incentive spirometry / acapella - Will perform an ambulatory pulse oximeter check if patient requires oxygen on ambulation; will provide patient with 1-2 L nasal cannula discharge - Will have outpatient follow-up with primary care provider within the next 7 days s/p Dehydration - likely 2/2 poor oral intake - 2/2 multiple days of vomiting and diarrhea - s/p IV fluid hydration - c/w PT - has been cleared for DC home; will discharge today with outpatient follow-up with primary care provider s/p Abdominal pain, improved - Mild dilation of the pancreatic duct and fatty liver seen on initial imaging - c/w Protonix and Zofran PRN Fatty liver - c/w dietary changes Normocytic anemia - Hg has remained stable - No further reported episodes of coffee ground emesis / hematemesis - c/w Protonix on discharge - Will have outpatient follow up with GI for likely endoscopy s/p Hypokalemia DVT prophylaxis - c/w Lovenox (re: COVID hyper-coagulable state) DISCHARGE MEDICATIONS: Please see below. ALLERGIES: Please see below. PHYSICAL EXAMINATION ON DISCHARGE: Vitals (See below) General: Patient is sitting up to be in any acute distress, is awake, alert and oriented 3 HEENT: NC, AT CVS: +S1S2 Lungs: Air entry is fair bilaterally without any evidence of rhonchi, crackles or wheezing Abdomen: Abdomen remains soft without any distention or tenderness Extremities: No edema of lower extremities, - Calf tenderness LABORATORY DATA: Please see below. IMAGING: Chest Xray, 07/23/20 Poor inspiratory chest with perihilar haziness which may be reflection of vascular crowding and low inflation, however, there is localized density in the right upper lobe consistent with infiltrate and pneumonia. Additional perihilar infiltrates are not excluded. CT abdomen/pelvis, 07/23/20 1. Fluid throughout the colon to the rectum consistent with diarrhea. 2. Mild bibasilar ground-glass infiltrates with associated atelectasis consistent with pneumonia. 3. Fatty infiltration of the liver. 4. Mild distention of the main pancreatic duct which tapers to the ampulla. 5. Otherwise negative CT abdomen/pelvis. No bowel obstruction. CTA, 07/23/20 1. New bilateral ground-glass pulmonary infiltrates with areas of atelectasis and early consolidation consistent with pneumonia which is greatest in the upper lobes. 2. Probable fatty infiltration of the liver. 3. Otherwise negative CTA chest. No interval pulmonary embolism is seen since 05/28/2017. ACTIVITY: [As tolerated]. DISCHARGE PLAN: Follow up with PCP charli 7 days Remain compliant with treatment plan and medications Return to the ER if you experience any problems DISPOSITION: Home DISCHARGE CONDITION: [Stable]. TIME SPENT ON DISCHARGE: 35 minutes Vital Signs/I&Os Vital Signs Date Time Temp Pulse Resp B/P (MAP) Pulse Ox O2 Delivery O2 Flow Rate FiO2 08/01/20 09:51 90 Room Air 08/01/20 09:49 93 08/01/20 08:59 17 114/56 (75) 08/01/20 04:00 96.9 07/31/20 20:00 1.0 07/30/20 16:19 40 I&O- Last 24 Hours up to 6 AM 08/01/20 06:00 Intake Total 960 ml Balance 960 ml Laboratory Data Labs 24H Laboratory Tests 2 08/01/20 08:49: Prothrombin Time 13.5, Prothromb Time International Ratio 1.01, Activated Partial Thromboplast Time 22.7L, Fibrinogen 361, D-Dimer, Quantitative 1293.84H, Anion Gap 7L, Glomerular Filtration Rate > 60.0, Calcium Level 8.5, Magnesium Level 2.4, Ferritin 997H, Total Bilirubin 0.7, Direct Bilirubin 0.3H, Aspartate Amino Transf (AST/SGOT) 25, Alanine Aminotransferase (ALT/SGPT) 86H, Alkaline Phosphatase 118H, C-Reactive Protein, Quantitative 0.48H, Total Protein 6.4, Albumin 3.0L, Albumin/Globulin Ratio 0.9L 08/01/20 08:50: Immature Granulocyte % (Auto) 1.8, Neutrophils (%) (Auto) 70.9H, Lymphocytes (%) (Auto) 18.0L, Monocytes (%) (Auto) 8.4H, Eosinophils (%) (Auto) 0.5, Basophils (%) (Auto) 0.4, Neutrophils # (Auto) 7.9, Lymphocytes # (Auto) 2.0, Monocytes # (Auto) 0.9H, Eosinophils # (Auto) 0.1, Basophils # (Auto) 0.0, Nucleated Red Blood Cells % (auto) 0.0 CBC/BMP Laboratory Tests 08/01/20 08:49 08/01/20 08:50 Microbiology Microbiology 07/23/20 Blood Culture - Final, Complete NO GROWTH AFTER 5 DAYS 07/23/20 Blood Culture - Final, Complete NO GROWTH AFTER 5 DAYS Discharge Medications Scheduled Guaifenesin (Mucinex) 600 Mg Tab.er.12h, 1,200 MG PO BID Prednisone (Prednisone) 10 Mg Tablet, 10 MG PO TAPER Take 4 tabs daily x 3 days, then 3 tabs daily x 3 days, then 2 tabs daily x 3 days, then 1 tab daily x 3 days and stop Allergies Coded Allergies: No Known Allergies (Unverified , 05/28/17) RAFAT OTERO MD Aug 01, 2020 10:11
[2020-08-01] MEDS: COMBIVENT RESPIMAT 100-20MCG INHALER 4GM INH SCH (10:33)
== END 2020-08-01 12:40 | disposition home or self-care (01) | DRG 177 ==
LOC: M ED 22:09 → M ED INP 07-24 00:01 → ENRESERV 07-24 11:19 → M ICU 07-24 12:30
PROVIDERS: ADMIT Internal Medicine; ATTEND Internal Medicine
DX: U07.1 COVID-19 (principal); J12.89 Other viral pneumonia; J96.01 Acute respiratory failure with hypoxia; E86.0 Dehydration; R19.7 Diarrhea, unspecified; E87.6 Hypokalemia; D64.9 Anemia, unspecified; I34.0 Nonrheumatic mitral (valve) insufficiency; E66.9 Obesity, unspecified; K76.0 Fatty (change of) liver, not elsewhere classified

== ENCOUNTER → 2020-09-23 | Outpatient (CLI) | payer OTHER ==
[~2020-09-23] MED LIST changes: +MUCI600T31 PO; +PANT20TA6 PO; +PRED10TA2 PO
--- NOTE | 2020-09-23 15:32 | REP ---
INDICATION: PNEUMONIA DUE TO CORONARVIRUS. COMPARISON: Comparison chest x-ray July 23, 2020. TECHNIQUE: Two views.. FINDINGS: The lungs are well inflated and free of infiltrate. The pleural angles are sharp. The heart size is normal. Pulmonary vasculature is not increased. No significant bony abnormality is seen. There are surgical clips in the upper abdomen. IMPRESSION: Negative chest x-ray. <Electronically signed by Keenan Sabillon > 09/23/20 [id number]
== END ==
LOC: M CLY 13:43
PROVIDERS: ATTEND Physician Assistant
DX: U07.1 COVID-19 (principal); J12.82 Pneumonia due to coronavirus disease 2019

== ENCOUNTER → 2020-10-08 | Outpatient (REF) | payer OTHER ==
[2020-10-08 13:38] LABS: BASO % 0.6 % (0.0-1.0); EOS # 0.2 10^3/uL (0.0-0.5); EOS % 2.9 % (0.0-3.0); HEMATOCRIT 42.7 % (36.0-47.0); HEMOGLOBIN 13.5 g/dl (12.0-15.5); LYMPH # 2.1 10^3/uL (1.5-5.0); LYMPH % 30.9 % (24.0-44.0); MEAN CORPUSCULAR HEMOGLOBIN 30.9 pg (27.0-33.0); MEAN CORPUSCULAR HGB CONC 31.6 g/dl (32.0-36.5); MEAN CORPUSCULAR VOLUME 97.7 fl (80.0-96.0); MONO # 0.7 10^3/uL (0.0-0.8); MONO % 10.7 % (2.0-8.0); NEUTROPHILS # 3.8 10^3/uL (1.5-8.5); NEUTROPHILS % 54.6 % (36.0-66.0); PLATELET COUNT, AUTOMATED 292 10^3/uL (150-450); RED BLOOD COUNT 4.37 10^6/uL (4.00-5.40); WHITE BLOOD COUNT 6.9 10^3/uL (4.0-10.0)
[2020-10-08 13:50] LABS: ALT/SGPT 40 U/L (12-78); BILIRUBIN,TOTAL 0.5 MG/DL (0.2-1.0); BLOOD UREA NITROGEN 19 MG/DL (7-18); CALCIUM LEVEL 9.4 MG/DL (8.5-10.1); CARBON DIOXIDE LEVEL 26 MEQ/L (21-32); CHLORIDE LEVEL 108 MEQ/L (98-107); CHOLESTEROL LEVEL 183 MG/DL (<200); CHOLESTEROL RISK RATIO 2.204 (<5); CREATININE FOR GFR 0.97 MG/DL (0.55-1.30); GLOMERULAR FILTRATION RATE > 60.0 (>51); GLUCOSE, FASTING 114 MG/DL (70-100); HDL CHOLESTEROL 83 MG/DL (>40); LDL CHOLESTEROL 84 MG/DL (<100); NON-HDL-C 100 MG/DL; POTASSIUM SERUM 4.3 MEQ/L (3.5-5.1); SODIUM LEVEL 139 MEQ/L (136-145); TOTAL PROTEIN 7.1 GM/DL (6.4-8.2); TRIGLYCERIDES LEVEL 79 MG/DL (<150)
== END ==
LOC: M SFHCCLAY 08:55
PROVIDERS: ATTEND Physician Assistant
DX: Z00.00 Encounter for general adult medical examination without abnormal findings (principal)

== ENCOUNTER → 2020-10-15 | Outpatient (CLI) | payer OTHER ==
[~2020-10-15] MED LIST changes: +ISOVUE-370 76% 100ML VIAL As Ordered ONE
--- NOTE | 2020-10-16 20:17 | REP ---
INDICATION: PANCREATIC DUCTAL ABN COMPARISON: 07/23/2020 TECHNIQUE: Axial contrast-enhanced images of the abdomen using 100 cc Isovue 370 intravenous contrast material with coronal and sagittal reformations. This CT examination was performed using the following dose reduction techniques: Automated exposure control, adjustment of mA and/or kv according to the patient's size, and use of iterative reconstruction technique. FINDINGS: Liver demonstrates mild fatty infiltration without focal hepatic lesion identified. Patient is status post cholecystectomy. Spleen, pancreas, bilateral adrenal glands and kidneys are essentially normal. While the pancreatic duct is mildly prominent, there is no evidence for obvious pancreatic mass lesion. The visualized enteric system is unremarkable and without obstruction or acute inflammatory process. No ascites. No free air. No obvious adenopathy. Abdominal aorta and vasculature appear normal. Surrounding musculoskeletal structures are intact. IMPRESSION: Hepatosteatosis. Essentially normal appearance of the pancreas and pancreatic duct without obvious mass lesion or abnormality. <Electronically signed by Kerwin Granados > 10/16/202013
== END ==
LOC: M RAD 16:04
PROVIDERS: ATTEND Physician Assistant
DX: Q45.3 Other congenital malformations of pancreas and pancreatic duct (principal); K76.89 Other specified diseases of liver
CPT/HCPCS: 74160; Q9967

== ENCOUNTER → 2025-06-30 | Outpatient (REF) | payer OTHER ==
[~2025-06-30] MED LIST changes: -ISOVUE-370 76% 100ML VIAL As Ordered ONE
[2025-06-30 13:01] LABS: PLATELET COUNT, AUTOMATED 289 10^3/uL (150-450)
[2025-06-30 13:31] LABS: ESTIMATED AVERAGE GLUCOSE 111.0 MG/DL (60-110)
[2025-06-30 13:35] LABS: ALT/SGPT 16.0 U/L (7.0-40); AST/SGOT 15.0 U/L (<34); CALCIUM LEVEL 9.8 MG/DL (8.3-10.6); CARBON DIOXIDE LEVEL 27.0 MMOL/L (20-31); CHLORIDE LEVEL 103.0 MMOL/L (98-107); CHOLESTEROL LEVEL 155.0 MG/DL (<200); CHOLESTEROL RISK RATIO 1.9 (<5); CREATININE FOR GFR 0.84 MG/DL (0.55-1.30); GLOMERULAR FILTRATION RATE 77.6 (>45); LDL CHOLESTEROL 59.2 MG/DL (<100); NON-HDL-C 73.8 MG/DL; POTASSIUM SERUM 4.5 MMOL/L (3.5-5.1); SODIUM LEVEL 140.0 MMOL/L (136-145); TRIGLYCERIDES LEVEL 73.0 MG/DL (<150)
== END ==
LOC: M SFHCCLAY 08:32
PROVIDERS: ATTEND Student in an Organized Health Care Education/Training Program
DX: Z00.00 Encounter for general adult medical examination without abnormal findings (principal)

== ENCOUNTER → 2025-07-17 | Outpatient (CLI) | payer OTHER | LOC: M WHC 14:56 | PROVIDERS: ATTEND Student in an Organized Health Care Education/Training Program | DX: Z12.31 Encounter for screening mammogram for malignant neoplasm of breast (principal) ==